=== PATIENT | male | born 1950 | race African-American/Black ===

== ENCOUNTER 2021-06-11 17:02 | Inpatient (IN) | payer BC, MEDICARE ==
[~2021-06-11 17:02] MED LIST: Iopamidol-370 76% 500 ML 1 ML ONE
[2021-06-11] MEDS ORDERED: Furosemide 40 MG/4 ML VIAL ONE (18:14)
[2021-06-11] MEDS ORDERED: Nitroglycerin 2% Ointment 1 INCH/1 GM Packet ONE (18:14)
[2021-06-11] MEDS ORDERED: Diltiazem 125 MG/25 ML ONE (18:14)
[2021-06-11 18:16] LABS: #Basophils 0.1 thou/uL (0.0-0.2); #Eosinphils 0.1 thou/uL (0.0-0.7); #Lymphocytes 1.8 thou/uL (1.20-3.40); #Monocytes 0.9 thou/uL (0.11-0.59); #Neutrophils 5.5 thou/uL (1.40-6.50); %Basophils 0.9 % (0.0-1.0); %Eosinophils 1.5 % (0.0-10.0); %Monocytes 10.5 % (0.0-10.0); %Neutrophils 65.2 % (42.0-75.0); Hemoglobin 12.4 g/dL (14.0-18.0); Mean Corpuscular HGB CONC 31.5 g/dL (32.0-36.0); Mean Corpuscular Hemoglobin 23.1 pg (27.0-31.0); Mean Corpuscular Volume 73.4 fL (78.0-98.0); Mean Platelet Volume 10.5 fL (7.4-10.4); Platelet Count 202 thou/uL (130-400); RBC Distribution Width 16.5 % (11.5-14.5); Red Blood Cell (RBC) Count 5.37 mill/uL (4.70-6.10); White Blood Cell (WBC) Count 8.4 thou/uL (4.8-10.8)
[2021-06-11 18:31] LABS: ALT (SGPT) 22 U/L (8-55); AST (SGOT) 17 U/L (5-34); Albumin 3.9 g/dL (3.4-4.8); Alkaline Phosphatase 61 U/L (40-110); Anion Gap 11 mmol/L (10-20); BUN (Urea Nitrogen) 14 mg/dL (8.4-25.7); Bilirubin, Total 0.8 mg/dL (0.2-1.2); Burr Cells SLIGHT = 2-5 cells (100X) (0-1/hpf); Calc. Creatinine Clearance 0 mL/min (70-130); Calcium 9.5 mg/dL (7.8-10.44); Carbon Dioxide 28 mmol/L (23-31); Chloride 105 mmol/L (98-107); Globulin 2.9 g/dL (2.4-3.5); Glucose 103 mg/dL (80-115); Hypochromia SLIGHT = 6-15 cells (100X) (0-5/hpf); MDiff Complete? YES; Microcytosis SLIGHT = 6-15 cells (100X) (0-5/hpf); Platelet Morphology Comment Appears Adequate; Polychromasia SLIGHT = 2-3 cells (100X) (0-2/hpf); Potassium 3.5 mmol/L (3.5-5.1); Protein, Total 6.8 g/dL (5.8-8.1); Sodium 140 mmol/L (136-145); Target Cells SLIGHT = 2-5 cells (100X) (0-1/hpf)
[2021-06-11 18:39] LABS: Digoxin 0.44 ng/mL (0.8-2.0)
[2021-06-11] MEDS ORDERED: Dextrose 5% in Water 1,000 ML IV PRN (20:28)
[2021-06-11] MEDS ORDERED: Dextrose 50% Abboject 50 ML SYRINGE SLOW IVP PRN (20:28)
[2021-06-11] MEDS ORDERED: Acetaminophen 325 MG TAB PO PRN (20:28)
[2021-06-11] MEDS ORDERED: HYDROcodone/Acetaminophen 7.5/325 mg Tablet PO PRN (20:28)
[2021-06-11] MEDS ORDERED: Ondansetron PF 4 MG/2 ML Vial IVP PRN (20:28)
[2021-06-11] MEDS ORDERED: Zolpidem Tartrate 5 MG TAB PO PRN (20:28)
[2021-06-11] MEDS ORDERED: Digoxin 0.25 MG TAB PO SCH (20:32)
[2021-06-11] MEDS ORDERED: Diltiazem 125 MG in Sodium Chloride 0.9% 100 ML IVPB SCH (20:45)
[2021-06-11] MEDS ORDERED: Furosemide 100 MG/10 ML VIAL SLOW IVP SCH (20:45)
[2021-06-11] MEDS ORDERED: Potassium Chloride 20 MEQ TAB PO SCH (20:45)
[2021-06-11] MEDS ORDERED: Diltiazem HCl CD 300 mg Capsule PO SCH (21:00)
[2021-06-11 21:06] LABS: Magnesium 1.5 mg/dL (1.6-2.6)
[2021-06-11 21:41] LABS: Troponin I 0.029 ng/mL (< 0.028)
[2021-06-11] MEDS: Apixaban 5 MG TAB PO SCH (23:05)
[2021-06-11] MEDS: Famotidine 20 MG TAB PO SCH (23:05)
[2021-06-11] MEDS: Atorvastatin Calcium 40 MG TAB PO SCH (23:06)
[2021-06-12] MEDS ORDERED: Diltiazem 125 MG in Sodium Chloride 0.9% 100 ML IVPB SCH ×2 (00:30→11:36)
[2021-06-12] MEDS ORDERED: Magnesium 2 GM/50 ML(in water) 2 GM in Premix Bag 1 BAG IVPB SCH ×2 (00:30→06:00)
[2021-06-12 00:31] VITALS: BMI 40.3
[2021-06-12 00:33] LABS: Troponin I 0.036 ng/mL (< 0.028)
[2021-06-12 04:56] LABS: #Eosinphils 0.1 thou/uL (0.0-0.7); #Lymphocytes 1.6 thou/uL (1.20-3.40); #Monocytes 0.8 thou/uL (0.11-0.59); #Neutrophils 5.2 thou/uL (1.40-6.50); %Basophils 0.3 % (0.0-1.0); %Eosinophils 1.3 % (0.0-10.0); %Lymphocytes 20.6 % (21.0-51.0); %Monocytes 10.4 % (0.0-10.0); %Neutrophils 67.5 % (42.0-75.0); Hemoglobin 12.3 g/dL (14.0-18.0); Mean Corpuscular HGB CONC 31.6 g/dL (32.0-36.0); Mean Corpuscular Hemoglobin 23.2 pg (27.0-31.0); Mean Corpuscular Volume 73.6 fL (78.0-98.0); Mean Platelet Volume 10.5 fL (7.4-10.4); Platelet Count 192 thou/uL (130-400); RBC Distribution Width 16.4 % (11.5-14.5); Red Blood Cell (RBC) Count 5.28 mill/uL (4.70-6.10); White Blood Cell (WBC) Count 7.7 thou/uL (4.8-10.8)
[2021-06-12 04:59] LABS: ALT (SGPT) 21 U/L (8-55); AST (SGOT) 17 U/L (5-34); Albumin 3.9 g/dL (3.4-4.8); Alkaline Phosphatase 60 U/L (40-110); Anion Gap 13 mmol/L (10-20); BUN (Urea Nitrogen) 14 mg/dL (8.4-25.7); Calc. Creatinine Clearance 107 mL/min (70-130); Calcium 9.1 mg/dL (7.8-10.44); Carbon Dioxide 31 mmol/L (23-31); Cardiac Risk 2.1 (Less than 4.5); Chloride 101 mmol/L (98-107); Cholesterol 91 mg/dl (< 200 Desired); Glucose 113 mg/dL (80-115); HDL Cholesterol 43 mg/dL (>60 Neg Risk); LDL Cholesterol, Calculated 38 mg/dL; Magnesium 1.7 mg/dL (1.6-2.6); Potassium 3.1 mmol/L (3.5-5.1); Protein, Total 6.9 g/dL (5.8-8.1); Sodium 142 mmol/L (136-145); Triglycerides 49 mg/dL (Less than 150)
[2021-06-12 05:01] LABS: Troponin I 0.027 ng/mL (< 0.028)
[2021-06-12] MEDS: Furosemide 40 MG/4 ML VIAL SLOW IVP SCH ×2 (05:44→14:15)
[2021-06-12] MEDS ORDERED: Diltiazem HCl CD 300 mg Capsule PO SCH (09:00)
[2021-06-12] MEDS ORDERED: Digoxin 0.25 MG TAB PO SCH (09:00)
[2021-06-12] MEDS: Apixaban 5 MG TAB PO SCH ×2 (09:38→20:22)
[2021-06-12] MEDS: Famotidine 20 MG TAB PO SCH ×2 (09:38→20:21)
[2021-06-12] MEDS: Allopurinol 100 MG TAB PO SCH (09:39)
[2021-06-12] MEDS ORDERED: Spironolactone 25 MG TAB PO SCH (15:00)
[2021-06-12 16:11] LABS: SARS-CoV-2 PCR by NAA Not Detected (NotDetected)
[2021-06-12] MEDS: Amiodarone 200 MG TAB PO SCH ×2 (16:49→20:22)
[2021-06-12] MEDS: Atorvastatin Calcium 40 MG TAB PO SCH (20:21)
[2021-06-13 05:05] LABS: #Basophils 0.1 thou/uL (0.0-0.2); #Eosinphils 0.2 thou/uL (0.0-0.7); #Lymphocytes 1.8 thou/uL (1.20-3.40); #Monocytes 0.8 thou/uL (0.11-0.59); #Neutrophils 5.7 thou/uL (1.40-6.50); %Basophils 0.7 % (0.0-1.0); %Eosinophils 2.4 % (0.0-10.0); %Lymphocytes 21.4 % (21.0-51.0); %Monocytes 9.5 % (0.0-10.0); %Neutrophils 66.1 % (42.0-75.0); Hemoglobin 12.8 g/dL (14.0-18.0); Mean Corpuscular HGB CONC 31.1 g/dL (32.0-36.0); Mean Corpuscular Hemoglobin 22.9 pg (27.0-31.0); Mean Corpuscular Volume 73.8 fL (78.0-98.0); Mean Platelet Volume 10.2 fL (7.4-10.4); Platelet Count 205 thou/uL (130-400); RBC Distribution Width 16.2 % (11.5-14.5); Red Blood Cell (RBC) Count 5.56 mill/uL (4.70-6.10); White Blood Cell (WBC) Count 8.6 thou/uL (4.8-10.8)
[2021-06-13] MEDS: Furosemide 40 MG/4 ML VIAL SLOW IVP SCH ×2 (05:20→13:11)
[2021-06-13] MEDS: Diltiazem 125 MG in Sodium Chloride 0.9% 100 ML IVPB SCH ×2 (05:20→13:10)
[2021-06-13 05:29] LABS: Anion Gap 13 mmol/L (10-20); BUN (Urea Nitrogen) 14 mg/dL (8.4-25.7); Calc. Creatinine Clearance 97 mL/min (70-130); Calcium 8.7 mg/dL (7.8-10.44); Carbon Dioxide 30 mmol/L (23-31); Chloride 101 mmol/L (98-107); Glucose 163 mg/dL (80-115); Potassium 3.1 mmol/L (3.5-5.1); Sodium 141 mmol/L (136-145)
[2021-06-13 05:37] LABS: Digoxin 0.57 ng/mL (0.8-2.0)
[2021-06-13] MEDS: Allopurinol 100 MG TAB PO SCH (08:56)
[2021-06-13] MEDS: Famotidine 20 MG TAB PO SCH ×2 (08:57→20:19)
[2021-06-13] MEDS: Spironolactone 25 MG TAB PO SCH (08:57)
[2021-06-13] MEDS: Amiodarone 200 MG TAB PO SCH ×3 (08:57→20:19)
[2021-06-13] MEDS: Apixaban 5 MG TAB PO SCH ×2 (08:57→20:19)
[2021-06-13] MEDS ORDERED: Potassium Chloride 20 MEQ TAB PO SCH (11:00)
[2021-06-13] MEDS ORDERED: Lisinopril 5 MG TAB PO SCH (12:15)
[2021-06-13] MEDS: Atorvastatin Calcium 40 MG TAB PO SCH (20:19)
[2021-06-14] MEDS: Furosemide 40 MG/4 ML VIAL SLOW IVP SCH ×2 (05:17→14:25)
[2021-06-14] MEDS ORDERED: metFORMIN 500 MG TAB PO SCH (08:00)
[2021-06-14] MEDS: Allopurinol 100 MG TAB PO SCH (08:33)
[2021-06-14] MEDS: Spironolactone 25 MG TAB PO SCH (08:33)
[2021-06-14] MEDS: Famotidine 20 MG TAB PO SCH ×2 (08:33→22:07)
[2021-06-14] MEDS: Apixaban 5 MG TAB PO SCH ×2 (08:33→22:07)
[2021-06-14] MEDS: Amiodarone 200 MG TAB PO SCH ×3 (08:34→22:07)
[2021-06-14 08:38] LABS: Anion Gap 13 mmol/L (10-20); BUN (Urea Nitrogen) 14 mg/dL (8.4-25.7); Calc. Creatinine Clearance 93 mL/min (70-130); Calcium 8.9 mg/dL (7.8-10.44); Carbon Dioxide 33 mmol/L (23-31); Chloride 101 mmol/L (98-107); Glucose 111 mg/dL (80-115); Magnesium 1.9 mg/dL (1.6-2.6); Potassium 3.5 mmol/L (3.5-5.1); Sodium 143 mmol/L (136-145)
[2021-06-14] MEDS ORDERED: Lisinopril 5 MG TAB PO SCH (09:00)
[2021-06-14] MEDS ORDERED: Milk Of Magnesia 30 ML UDCUP PO PRN (09:54)
[2021-06-14] MEDS: HumaLOG 300 UNITS/3 ML VIAL SC PRN (11:09)
[2021-06-14] MEDS ORDERED: Potassium Chloride 20 MEQ TAB PO SCH (12:00)
[2021-06-14] MEDS: Lisinopril 10 MG TAB PO SCH (22:08)
[2021-06-14] MEDS: Atorvastatin Calcium 40 MG TAB PO SCH (22:08)
[2021-06-15 05:09] LABS: #Basophils 0.1 thou/uL (0.0-0.2); #Eosinphils 0.2 thou/uL (0.0-0.7); #Lymphocytes 2.1 thou/uL (1.20-3.40); #Monocytes 0.9 thou/uL (0.11-0.59); #Neutrophils 4.9 thou/uL (1.40-6.50); %Eosinophils 2.7 % (0.0-10.0); %Lymphocytes 25.7 % (21.0-51.0); %Monocytes 10.5 % (0.0-10.0); Mean Corpuscular HGB CONC 31.4 g/dL (32.0-36.0); Mean Corpuscular Hemoglobin 23.4 pg (27.0-31.0); Mean Corpuscular Volume 74.6 fL (78.0-98.0); Mean Platelet Volume 9.6 fL (7.4-10.4); Platelet Count 228 thou/uL (130-400); RBC Distribution Width 16.3 % (11.5-14.5); Red Blood Cell (RBC) Count 5.98 mill/uL (4.70-6.10); White Blood Cell (WBC) Count 8.1 thou/uL (4.8-10.8)
[2021-06-15] MEDS: Furosemide 40 MG/4 ML VIAL SLOW IVP SCH (05:25)
[2021-06-15 05:35] LABS: Anion Gap 12 mmol/L (10-20); BUN (Urea Nitrogen) 17 mg/dL (8.4-25.7); Calc. Creatinine Clearance 93 mL/min (70-130); Calcium 8.8 mg/dL (7.8-10.44); Carbon Dioxide 30 mmol/L (23-31); Chloride 103 mmol/L (98-107); Glucose 100 mg/dL (80-115); Potassium 3.4 mmol/L (3.5-5.1); Sodium 142 mmol/L (136-145)
[2021-06-15] MEDS: Spironolactone 25 MG TAB PO SCH (08:46)
[2021-06-15] MEDS: Amiodarone 200 MG TAB PO SCH ×3 (08:46→21:48)
[2021-06-15] MEDS: Famotidine 20 MG TAB PO SCH ×2 (08:47→21:50)
[2021-06-15] MEDS: Apixaban 5 MG TAB PO SCH ×2 (08:47→21:49)
[2021-06-15] MEDS: Lisinopril 10 MG TAB PO SCH ×2 (08:47→21:50)
[2021-06-15] MEDS: Allopurinol 100 MG TAB PO SCH (08:47)
[2021-06-15] MEDS ORDERED: Lidocaine 1% PF 5 ML VIAL ONE ×2 (10:52→11:17)
[2021-06-15] MEDS ORDERED: PROPOFOL 20 ML ONE (10:52)
[2021-06-15] MEDS ORDERED: PROPOFOL 200 MG/20 ML VIAL ONE (11:17)
[2021-06-15] MEDS ORDERED: Potassium Chloride 20 MEQ TAB PO SCH (11:30)
[2021-06-15] MEDS ORDERED: Metoprolol Tartrate 5 MG/5 ML VIAL ONE (12:58)
[2021-06-15] MEDS: Atorvastatin Calcium 40 MG TAB PO SCH (21:49)
[2021-06-16 04:45] LABS: #Basophils 0.1 thou/uL (0.0-0.2); #Eosinphils 0.2 thou/uL (0.0-0.7); #Lymphocytes 2.6 thou/uL (1.20-3.40); #Neutrophils 6.2 thou/uL (1.40-6.50); %Basophils 0.8 % (0.0-1.0); %Eosinophils 1.9 % (0.0-10.0); %Lymphocytes 26.1 % (21.0-51.0); %Monocytes 9.8 % (0.0-10.0); %Neutrophils 61.4 % (42.0-75.0); Hemoglobin 13.7 g/dL (14.0-18.0); Mean Corpuscular HGB CONC 31.2 g/dL (32.0-36.0); Mean Corpuscular Hemoglobin 23.1 pg (27.0-31.0); Mean Corpuscular Volume 74.1 fL (78.0-98.0); Mean Platelet Volume 9.8 fL (7.4-10.4); Platelet Count 254 thou/uL (130-400); RBC Distribution Width 16.2 % (11.5-14.5); Red Blood Cell (RBC) Count 5.91 mill/uL (4.70-6.10); White Blood Cell (WBC) Count 10.1 thou/uL (4.8-10.8)
[2021-06-16 04:54] LABS: Anion Gap 12 mmol/L (10-20); BUN (Urea Nitrogen) 20 mg/dL (8.4-25.7); Calc. Creatinine Clearance 85 mL/min (70-130); Calcium 8.8 mg/dL (7.8-10.44); Carbon Dioxide 30 mmol/L (23-31); Chloride 103 mmol/L (98-107); Glucose 111 mg/dL (80-115); Potassium 3.6 mmol/L (3.5-5.1); Sodium 141 mmol/L (136-145)
[2021-06-16] MEDS ORDERED: Metoprolol Tartrate 5 MG/5 ML VIAL IVP SCH (09:02)
[2021-06-16] MEDS ORDERED: Potassium Chloride 20 MEQ TAB PO SCH (09:15)
[2021-06-16] MEDS ORDERED: Enoxaparin Sodium 100 MG/ML SYRINGE SC SCH (09:30)
[2021-06-16] MEDS: Amiodarone 200 MG TAB PO SCH ×3 (09:31→20:49)
[2021-06-16] MEDS: Metoprolol Tartrate 25 MG TAB PO SCH ×2 (09:31→20:50)
[2021-06-16] MEDS: Famotidine 20 MG TAB PO SCH ×2 (09:32→20:50)
[2021-06-16] MEDS: Allopurinol 100 MG TAB PO SCH (09:33)
[2021-06-16] MEDS: Spironolactone 25 MG TAB PO SCH (09:33)
[2021-06-16] MEDS: Lisinopril 10 MG TAB PO SCH ×2 (09:36→20:50)
[2021-06-16] MEDS: Apixaban 5 MG TAB PO SCH (10:48)
[2021-06-16] MEDS: Atorvastatin Calcium 40 MG TAB PO SCH (20:50)
[2021-06-16] MEDS: Enoxaparin Sodium 100 MG/ML SYRINGE SC SCH (20:50)
[2021-06-17 04:39] LABS: #Basophils 0.1 thou/uL (0.0-0.2); #Eosinphils 0.1 thou/uL (0.0-0.7); #Lymphocytes 2.6 thou/uL (1.20-3.40); #Monocytes 0.9 thou/uL (0.11-0.59); %Basophils 0.9 % (0.0-1.0); %Eosinophils 1.5 % (0.0-10.0); %Lymphocytes 29.9 % (21.0-51.0); %Monocytes 10.7 % (0.0-10.0); Hemoglobin 13.2 g/dL (14.0-18.0); Mean Corpuscular HGB CONC 31.3 g/dL (32.0-36.0); Mean Corpuscular Hemoglobin 23.2 pg (27.0-31.0); Mean Corpuscular Volume 74.1 fL (78.0-98.0); Mean Platelet Volume 9.8 fL (7.4-10.4); Platelet Count 241 thou/uL (130-400); RBC Distribution Width 16.2 % (11.5-14.5); Red Blood Cell (RBC) Count 5.69 mill/uL (4.70-6.10); White Blood Cell (WBC) Count 8.7 thou/uL (4.8-10.8)
[2021-06-17 04:45] LABS: INR-International Normal Ratio 1.3
[2021-06-17 04:58] LABS: Anion Gap 13 mmol/L (10-20); BUN (Urea Nitrogen) 22 mg/dL (8.4-25.7); Calc. Creatinine Clearance 87 mL/min (70-130); Calcium 8.7 mg/dL (7.8-10.44); Carbon Dioxide 26 mmol/L (23-31); Chloride 106 mmol/L (98-107); Glucose 107 mg/dL (80-115); Magnesium 1.9 mg/dL (1.6-2.6); Sodium 141 mmol/L (136-145)
[2021-06-17] MEDS: Amiodarone 200 MG TAB PO SCH ×2 (09:22→20:25)
[2021-06-17] MEDS: Allopurinol 100 MG TAB PO SCH (09:22)
[2021-06-17] MEDS: Lisinopril 10 MG TAB PO SCH ×2 (09:22→20:25)
[2021-06-17] MEDS: Famotidine 20 MG TAB PO SCH ×2 (09:22→20:25)
[2021-06-17] MEDS ORDERED: Metoprolol Tartrate 5 MG/5 ML VIAL IVP SCH (09:22)
[2021-06-17] MEDS: Enoxaparin Sodium 100 MG/ML SYRINGE SC SCH ×2 (09:23→20:25)
[2021-06-17] MEDS: Spironolactone 25 MG TAB PO SCH (09:23)
[2021-06-17] MEDS: Metoprolol Tartrate 25 MG TAB PO SCH (09:23)
[2021-06-17] MEDS: HumaLOG 300 UNITS/3 ML VIAL SC PRN (13:05)
[2021-06-17] MEDS: Metoprolol Tartrate 50 MG TAB PO SCH (20:25)
[2021-06-17] MEDS: Atorvastatin Calcium 40 MG TAB PO SCH (20:25)
[2021-06-18 04:31] LABS: #Basophils 0.1 thou/uL (0.0-0.2); #Eosinphils 0.1 thou/uL (0.0-0.7); #Lymphocytes 2.7 thou/uL (1.20-3.40); #Monocytes 0.9 thou/uL (0.11-0.59); #Neutrophils 4.5 thou/uL (1.40-6.50); %Basophils 0.9 % (0.0-1.0); %Eosinophils 1.3 % (0.0-10.0); %Lymphocytes 33.1 % (21.0-51.0); %Monocytes 10.8 % (0.0-10.0); %Neutrophils 53.9 % (42.0-75.0); Hemoglobin 13.6 g/dL (14.0-18.0); Mean Corpuscular HGB CONC 31.2 g/dL (32.0-36.0); Mean Corpuscular Hemoglobin 23.1 pg (27.0-31.0); Mean Platelet Volume 9.6 fL (7.4-10.4); Platelet Count 237 thou/uL (130-400); Red Blood Cell (RBC) Count 5.89 mill/uL (4.70-6.10); White Blood Cell (WBC) Count 8.3 thou/uL (4.8-10.8)
[2021-06-18 04:48] LABS: Anion Gap 13 mmol/L (10-20); BUN (Urea Nitrogen) 24 mg/dL (8.4-25.7); Calc. Creatinine Clearance 73 mL/min (70-130); Calcium 9.1 mg/dL (7.8-10.44); Carbon Dioxide 28 mmol/L (23-31); Chloride 105 mmol/L (98-107); Glucose 111 mg/dL (80-115); Potassium 3.8 mmol/L (3.5-5.1); Sodium 142 mmol/L (136-145)
[2021-06-18] MEDS: Metoprolol Tartrate 50 MG TAB PO SCH (05:43)
[2021-06-18] MEDS ORDERED: Isoproterenol 0.2 MG/1 ML AMP ONE (06:19)
[2021-06-18] MEDS ORDERED: Heparin 10,000 UNITS/ 10 ML VIAL ONE (06:19)
[2021-06-18] MEDS ORDERED: Protamine Sulfate 50 MG/5 ML VIAL ONE (06:19)
[2021-06-18] MEDS ORDERED: Lidocaine 1% (PF) 30 ML VIAL ONE (06:19)
[2021-06-18] MEDS ORDERED: Heparin 25,000 units/D5W 0 ML ONE (06:19)
[2021-06-18] MEDS ORDERED: Propofol 500 MG/50 ML VIAL ONE (07:04)
[2021-06-18] MEDS ORDERED: fentaNYL Citrate/PF 100 MCG/2 ML SYRINGE ONE (07:24)
[2021-06-18] MEDS ORDERED: Albuterol Sulfate HFA (OR ONLY) ONE (07:53)
[2021-06-18] MEDS: Spironolactone 25 MG TAB PO SCH (13:15)
[2021-06-18] MEDS: Allopurinol 100 MG TAB PO SCH (13:15)
[2021-06-18] MEDS: Lisinopril 10 MG TAB PO SCH (13:15)
[2021-06-18] MEDS: Famotidine 20 MG TAB PO SCH (13:15)
[2021-06-18] MEDS: Amiodarone 200 MG TAB PO SCH (13:16)
[2021-06-18] MEDS: Enoxaparin Sodium 100 MG/ML SYRINGE SC SCH (13:18)
[2021-06-18 15:07] VITALS: BP 127/68; TEMP 97.1
[2021-06-18] MEDS ORDERED: Amiodarone 200 MG TAB PO SCH (21:00)
[2021-06-18] MEDS ORDERED: Metoprolol Tartrate 25 MG TAB PO SCH (21:00)
[2021-06-18] MEDS ORDERED: Apixaban 5 MG TAB PO SCH (21:00)
== END 2021-06-18 16:45 | disposition home or self-care (01) | DRG 273 ==
LOC: ERS 17:02 → 2NO 19:35
PROVIDERS: ADMIT Family Medicine; ATTEND Family Medicine
PROC: B24BZZ4 Ultrasonography of Heart with Aorta, Transesophageal (ICD-10-PCS; 2021-06-15)
PROC: 02583ZZ Destruction of Conduction Mechanism, Percutaneous Approach (ICD-10-PCS; principal; 2021-06-18)
PROC: 02K83ZZ Map Conduction Mechanism, Percutaneous Approach (ICD-10-PCS; 2021-06-18)
PROC: 4A023FZ Measurement of Cardiac Rhythm, Percutaneous Approach (ICD-10-PCS; 2021-06-18)
PROC: 4A0234Z Measurement of Cardiac Electrical Activity, Percutaneous Approach (ICD-10-PCS; 2021-06-18)
DX: I48.3 Typical atrial flutter (principal); I50.43 Acute on chronic combined systolic (congestive) and diastolic (congestive) heart failure; I11.0 Hypertensive heart disease with heart failure; I48.19 Other persistent atrial fibrillation; Z20.822 Contact with and (suspected) exposure to COVID-19; E11.9 Type 2 diabetes mellitus without complications; E66.9 Obesity, unspecified; D17.0 Benign lipomatous neoplasm of skin and subcutaneous tissue of head, face and neck; E87.6 Hypokalemia; F17.210 Nicotine dependence, cigarettes, uncomplicated; I25.10 Atherosclerotic heart disease of native coronary artery without angina pectoris; I08.3 Combined rheumatic disorders of mitral, aortic and tricuspid valves; K59.00 Constipation, unspecified; Z79.01 Long term (current) use of anticoagulants; Z79.899 Other long term (current) drug therapy; Z68.38 Body mass index [BMI] 38.0-38.9, adult; Z88.0 Allergy status to penicillin
CPT/HCPCS: 36415; 36416; 71045; 71275; 80048; 80053; 80061; 80162; 83735; 83880; 84443; 84484; 85025; 85379; 85610; 92960; 93005; 93010; 93306; 93312; 93613; 93653; 96374; 96375; C1731; C1894; C2630; J1644; J1650; J1940; J2001; J2704; J2720; J3475; J3490; Q9967; U0003; U0005

== ENCOUNTER 2021-09-17 10:50 | Inpatient (IN) | payer MEDICARE ==
[2021-09-17 11:45] LABS: #Lymphocytes 0.9 thou/uL (1.20-3.40); #Monocytes 1.5 thou/uL (0.11-0.59); #Neutrophils 15.7 thou/uL (1.40-6.50); %Basophils 0.1 % (0.0-1.0); %Eosinophils 0.1 % (0.0-10.0); %Lymphocytes 5.2 % (21.0-51.0); %Neutrophils 86.6 % (42.0-75.0); Mean Corpuscular HGB CONC 32.2 g/dL (32.0-36.0); Mean Corpuscular Hemoglobin 22.7 pg (27.0-31.0); Mean Corpuscular Volume 70.5 fL (78.0-98.0); Mean Platelet Volume 10.7 fL (7.4-10.4); Platelet Count 198 thou/uL (130-400); RBC Distribution Width 17.2 % (11.5-14.5); Red Blood Cell (RBC) Count 5.28 mill/uL (4.70-6.10); White Blood Cell (WBC) Count 18.2 thou/uL (4.8-10.8)
[2021-09-17 11:58] LABS: ALT (SGPT) 12 U/L (8-55); AST (SGOT) 14 U/L (5-34); Albumin 3.5 g/dL (3.4-4.8); Alkaline Phosphatase 60 U/L (40-110); Anion Gap 16 mmol/L (10-20); BUN (Urea Nitrogen) 19 mg/dL (8.4-25.7); Bilirubin, Total 1.1 mg/dL (0.2-1.2); CK (CPK) 127 U/L (30-200); Calc. Creatinine Clearance 0 mL/min (70-130); Calcium 9.1 mg/dL (7.8-10.44); Carbon Dioxide 22 mmol/L (23-31); Chloride 105 mmol/L (98-107); Estimated GFR 39; Globulin 3.5 g/dL (2.4-3.5); Glucose 146 mg/dL (80-115); Lipase 13 U/L (8-78); Potassium 3.3 mmol/L (3.5-5.1); Sodium 140 mmol/L (136-145)
[2021-09-17 12:12] LABS: Band 12 % (5-11); Hypochromia SLIGHT = 6-15 cells (100X) (0-5/hpf); Lymphocytes 9 % (21-51); MDiff Complete? YES; Microcytosis SLIGHT = 6-15 cells (100X) (0-5/hpf); Monocytes 3 % (0-10); Neutrophil 76 % (42-75); Polychromasia SLIGHT = 2-3 cells (100X) (0-2/hpf); Target Cells SLIGHT = 2-5 cells (100X) (0-1/hpf)
[2021-09-17 12:25] LABS: CKMB 1.3 ng/mL (0-6.6)
[2021-09-17 12:40] LABS: Digoxin Less than 0.15 ng/mL (0.8-2.0)
[2021-09-17] MEDS ORDERED: Aspirin Chewable 81 MG TAB ONE (12:58)
[2021-09-17] MEDS ORDERED: Cefepime 2 GM VIAL ONE (12:58)
[2021-09-17] MEDS ORDERED: Vancomycin 1 GM/200 ML BAG ONE (13:46)
[2021-09-17] MEDS ORDERED: Dextrose 5% in Water 1,000 ML IV PRN (14:12)
[2021-09-17] MEDS ORDERED: HumaLOG 300 UNITS/3 ML VIAL SC PRN ×2 (14:12)
[2021-09-17] MEDS ORDERED: Dextrose 50% Abboject 50 ML SYRINGE SLOW IVP PRN (14:12)
[2021-09-17] MEDS ORDERED: Ondansetron ODT 4 MG TAB PO PRN (14:13)
[2021-09-17] MEDS ORDERED: Ondansetron PF 4 MG/2 ML Vial IVP PRN (14:13)
[2021-09-17] MEDS ORDERED: Acetaminophen 325 MG TAB PO PRN (14:13)
[2021-09-17] MEDS ORDERED: Senokot S 8.6-50 MG TAB PO PRN (14:13)
[2021-09-17] MEDS ORDERED: Sodium Chloride 0.9% 1,000 ML IV SCH ×3 (14:15→16:00)
[2021-09-17 14:17] LABS: Bacteria/HPF 4+ HPF (None Seen); Bilirubin Negative (Negative); Blood, Urine 3+ (Negative); Clarity Turbid (Clear); Glucose, Urine (Dipstick) Normal (Negative); Ketone, Urine Negative (Negative); Leukocyte 500 Leu/uL (Negative); Nitrite Negative (Negative); Protein, Urine (Dipstick) 30 mg/dL (Neg-Trace); RBC/HPF 21-50 HPF (0-3); Specific Gravity, Urine 1.021 (1.002-1.036); Squamous Epithelial None Seen HPF (0-3); Urobilinogen Normal mg/dL (Less than 2); WBC/HPF Greater than 50 HPF (0-3); pH, Urine 5.5 (5.0-9.0)
[2021-09-17] MEDS ORDERED: Potassium Chloride 20 MEQ TAB PO SCH (14:17)
[2021-09-17 14:37] LABS: SARS-CoV-2 NAA Rapid Test Not Detected (NotDetected)
[2021-09-17 15:09] LABS: Troponin I 0.047 ng/mL (< 0.028)
[2021-09-17 15:34] LABS: Lactic Acid 2.7 mmol/L (0.5-2.2)
[2021-09-17] MEDS ORDERED: Potassium Chloride 20 MEQ TAB ONE (15:39)
[2021-09-17 15:57] LABS: Magnesium 1.1 mg/dL (1.6-2.6)
[2021-09-17 18:28] VITALS: BMI 36.2
[2021-09-17] MEDS ORDERED: Magnesium 2 GM/50 ML(in water) 2 GM in Premix Bag 1 BAG IVPB SCH (19:45)
[2021-09-17 19:50] LABS: Lactic Acid 2.5 mmol/L (0.5-2.2)
[2021-09-17 19:58] LABS: Troponin I 0.048 ng/mL (< 0.028)
[2021-09-17] MEDS: Apixaban 5 MG TAB PO SCH (20:39)
[2021-09-17] MEDS: Famotidine 20 MG TAB PO SCH (20:39)
[2021-09-17] MEDS ORDERED: Enoxaparin Sodium 40 MG/0.4 ML SYRINGE SC SCH (21:00)
[2021-09-18] MEDS ORDERED: hydrALAZINE 20 MG/ML VIAL SLOW IVP PRN ×2 (03:19→11:41)
[2021-09-18 04:28] LABS: #Basophils 0.1 thou/uL (0.0-0.2); #Lymphocytes 1.8 thou/uL (1.20-3.40); #Monocytes 1.8 thou/uL (0.11-0.59); #Neutrophils 15.3 thou/uL (1.40-6.50); %Basophils 0.3 % (0.0-1.0); %Eosinophils 0.2 % (0.0-10.0); %Lymphocytes 9.7 % (21.0-51.0); %Monocytes 9.5 % (0.0-10.0); %Neutrophils 80.3 % (42.0-75.0); Hemoglobin 10.9 g/dL (14.0-18.0); Mean Corpuscular HGB CONC 31.8 g/dL (32.0-36.0); Mean Corpuscular Hemoglobin 22.8 pg (27.0-31.0); Mean Corpuscular Volume 71.6 fL (78.0-98.0); Mean Platelet Volume 11.5 fL (7.4-10.4); Platelet Count 193 thou/uL (130-400); RBC Distribution Width 17.4 % (11.5-14.5); White Blood Cell (WBC) Count 19.1 thou/uL (4.8-10.8)
[2021-09-18 05:01] LABS: Anion Gap 14 mmol/L (10-20); BUN (Urea Nitrogen) 18 mg/dL (8.4-25.7); Calc. Creatinine Clearance 75 mL/min (70-130); Calcium 8.6 mg/dL (7.8-10.44); Carbon Dioxide 22 mmol/L (23-31); Chloride 106 mmol/L (98-107); Estimated GFR 56; Glucose 105 mg/dL (80-115); Magnesium 1.6 mg/dL (1.6-2.6); Potassium 3.3 mmol/L (3.5-5.1); Sodium 139 mmol/L (136-145)
[2021-09-18] MEDS ORDERED: Potassium Chloride 20 MEQ TAB PO SCH (08:00)
[2021-09-18] MEDS ORDERED: Non-Formulary Item 1 EACH (Spironolactone [Spironolactone] 50 MG Tablet) PO SCH (09:00)
[2021-09-18] MEDS ORDERED: Lisinopril 10 MG TAB PO SCH (09:00)
[2021-09-18] MEDS: Atorvastatin Calcium 40 MG TAB PO SCH (09:06)
[2021-09-18] MEDS: Apixaban 5 MG TAB PO SCH ×2 (09:06→20:37)
[2021-09-18] MEDS: Famotidine 20 MG TAB PO SCH ×2 (09:06→20:37)
[2021-09-18] MEDS: Amiodarone 200 MG TAB PO SCH ×2 (09:06→20:37)
[2021-09-18] MEDS: Spironolactone 25 MG TAB PO SCH (09:06)
[2021-09-18] MEDS: Magnesium Oxide 400 MG TAB PO SCH ×2 (09:07→20:37)
[2021-09-18] MEDS: cefTRIAXone\\ROCEPHIN 1 GM in Sodium Chloride 0.9% 100 ML IVPB SCH (11:44)
[2021-09-18] MEDS ORDERED: hydrALAZINE 20 MG/ML VIAL ONE (12:05)
[2021-09-18] MEDS ORDERED: Metoprolol Tartrate 25 MG TAB PO SCH (21:00)
[2021-09-18] MEDS ORDERED: Lisinopril 20 MG TAB PO SCH (21:00)
[2021-09-19 04:41] LABS: Mean Corpuscular HGB CONC 33.4 g/dL (32.0-36.0); Mean Corpuscular Hemoglobin 24.1 pg (27.0-31.0); Mean Corpuscular Volume 72.4 fL (78.0-98.0); Mean Platelet Volume 10.2 fL (7.4-10.4); Platelet Count 210 thou/uL (130-400); RBC Distribution Width 17.7 % (11.5-14.5); Red Blood Cell (RBC) Count 4.57 mill/uL (4.70-6.10); White Blood Cell (WBC) Count 13.5 thou/uL (4.8-10.8)
[2021-09-19 05:12] LABS: Anion Gap 11 mmol/L (10-20); BUN (Urea Nitrogen) 16 mg/dL (8.4-25.7); Calc. Creatinine Clearance 92 mL/min (70-130); Calcium 8.5 mg/dL (7.8-10.44); Carbon Dioxide 23 mmol/L (23-31); Chloride 106 mmol/L (98-107); Estimated GFR 71; Glucose 102 mg/dL (80-115); Potassium 3.5 mmol/L (3.5-5.1); Sodium 136 mmol/L (136-145)
[2021-09-19] MEDS ORDERED: Lisinopril 10 MG TAB PO SCH (09:00)
[2021-09-19] MEDS ORDERED: Triamterene/Hydrochlorothiazid 75 mg/50 mg Tablet PO SCH (09:00)
[2021-09-19] MEDS: Spironolactone 25 MG TAB PO SCH (09:05)
[2021-09-19] MEDS: Apixaban 5 MG TAB PO SCH (09:06)
[2021-09-19] MEDS: Atorvastatin Calcium 40 MG TAB PO SCH (09:06)
[2021-09-19] MEDS: Amiodarone 200 MG TAB PO SCH (09:06)
[2021-09-19] MEDS: Famotidine 20 MG TAB PO SCH (09:06)
[2021-09-19] MEDS: cefTRIAXone\\ROCEPHIN 1 GM in Sodium Chloride 0.9% 100 ML IVPB SCH (11:34)
[2021-09-19 11:57] VITALS: TEMP 96.5
[2021-09-19 17:44] VITALS: BP 148/71
== END 2021-09-19 18:33 | disposition home health service (06) | DRG 871 ==
LOC: ERS 10:50 → ERHOLD 14:12 → 2NO 17:53
PROVIDERS: ADMIT Family Medicine; ATTEND Internal Medicine
DX: A41.52 Sepsis due to Pseudomonas (principal); I21.A1 Myocardial infarction type 2; I50.22 Chronic systolic (congestive) heart failure; E87.2 Acidosis; N39.0 Urinary tract infection, site not specified; N17.9 Acute kidney failure, unspecified; I13.0 Hypertensive heart and chronic kidney disease with heart failure and stage 1 through stage 4 chronic kidney disease, or unspecified chronic kidney disease; A41.59 Other Gram-negative sepsis; Z20.822 Contact with and (suspected) exposure to COVID-19; M10.9 Gout, unspecified; N18.30 Chronic kidney disease, stage 3 unspecified; I48.0 Paroxysmal atrial fibrillation; E11.22 Type 2 diabetes mellitus with diabetic chronic kidney disease; E87.6 Hypokalemia; E83.42 Hypomagnesemia; Z88.0 Allergy status to penicillin; Z79.899 Other long term (current) drug therapy; Z79.84 Long term (current) use of oral hypoglycemic drugs; Z79.01 Long term (current) use of anticoagulants; Z79.02 Long term (current) use of antithrombotics/antiplatelets
CPT/HCPCS: 36415; 36416; 70450; 71045; 80048; 80053; 80162; 81003; 81015; 82550; 82553; 83605; 83690; 83735; 83880; 84484; 85025; 85027; 87040; 87077; 87086; 87186; 93005; 94760; 96365; 96367; J0360; J0692; J0696; J3370; J3475; J3490; J7050; U0002

== ENCOUNTER 2021-10-08 11:05 | Outpatient (CLI) | payer MEDICARE ==
[2021-10-08 12:51] LABS: #Basophils 0.1 10x3/uL (0.0-0.2); #Eosinphils 0.2 10x3/uL (0.0-0.5); #Monocytes 0.7 10x3/uL (0.0-1.1); #Neutrophils 5.4 10x3/uL (1.5-8.4); %Basophils 0.7 % (0.0-2.0); %Eosinophils 1.9 % (0.0-6.0); %Monocytes 8.6 % (0.0-10.0); %Neutrophils 62.5 % (40.0-75.0); Hemoglobin 10.8 g/dL (13.5-17.5); Mean Corpuscular Hemoglobin 21.6 pg (27.0-33.0); Mean Corpuscular Volume 67.5 fl (81.2-95.1); Mean Platelet Volume 10.9 fl (7.4-10.4); Platelet Count 309 10x3/uL (150-450); RBC Distribution Width 20.8 % (11.5-14.5); Red Blood Cell (RBC) Count 4.99 10x6/uL (4.32-5.72); White Blood Cell (WBC) Count 8.6 10x3/uL (3.5-10.5)
[2021-10-08 13:18] LABS: ALT (SGPT) 19 U/L (8-55); AST (SGOT) 17 U/L (5-34); Albumin 4.1 g/dL (3.4-4.8); Alkaline Phosphatase 74 U/L (40-110); Anion Gap 17 mmol/L (10-20); BUN (Urea Nitrogen) 31 mg/dL (8.4-25.7); Bilirubin, Total 0.7 mg/dL (0.2-1.2); Calc. Creatinine Clearance 0 mL/min (70-130); Calcium 9.5 mg/dL (7.8-10.44); Carbon Dioxide 22 mmol/L (23-31); Chloride 106 mmol/L (98-107); Estimated GFR 43; Globulin 3.3 g/dL (2.4-3.5); Glucose 94 mg/dL (80-115); Potassium 4.1 mmol/L (3.5-5.1); Protein, Total 7.4 g/dL (5.8-8.1); Sodium 141 mmol/L (136-145)
[2021-10-08 13:29] LABS: Anisocytosis SLIGHT = 6-15 cells (100X) (0-5/hpf); Hypochromia SLIGHT = 6-15 cells (100X) (0-5/hpf); Microcytosis SLIGHT = 6-15 cells (100X) (0-5/hpf); Target Cells SLIGHT = 2-5 cells (100X) (0-1/hpf)
== END 2021-10-08 11:06 | disposition home or self-care (01) ==
LOC: LABBT 11:05
PROVIDERS: ATTEND Internal Medicine Cardiovascular Disease
DX: Z01.812 Encounter for preprocedural laboratory examination (principal); R94.39 Abnormal result of other cardiovascular function study; Z20.822 Contact with and (suspected) exposure to COVID-19
CPT/HCPCS: 80053; 85025; 87811

== ENCOUNTER 2021-10-13 07:21 | Emergency (ER) | payer MEDICARE ==
[2021-10-13] MEDS ORDERED: predniSONE 20 MG TAB ONE (08:15)
[2021-10-13 08:33] LABS: Bilirubin Negative (Negative); Blood, Urine 2+ (Negative); Clarity Turbid (Clear); Glucose, Urine (Dipstick) Normal (Negative); Ketone, Urine Negative (Negative); Leukocyte 500 Leu/uL (Negative); Nitrite Negative (Negative); Protein, Urine (Dipstick) 10 mg/dL (Neg-Trace); Specific Gravity, Urine 1.014 (1.002-1.036); Squamous Epithelial 0-3 HPF (0-3); Urobilinogen Normal mg/dL (Less than 2); WBC/HPF Greater than 50 HPF (0-3); pH, Urine 5.5 (5.0-9.0)
[2021-10-13 08:45] LABS: Bacteria/HPF 2+ HPF (None Seen)
== END 2021-10-13 09:15 | disposition home or self-care (01) ==
LOC: ERS 07:21
DX: N39.0 Urinary tract infection, site not specified (principal); B37.2 Candidiasis of skin and nail; L25.9 Unspecified contact dermatitis, unspecified cause; H01.9 Unspecified inflammation of eyelid; I10 Essential (primary) hypertension; Z79.899 Other long term (current) drug therapy
CPT/HCPCS: 81003; 81015; 87077; 87086; 87186; 99283; J7512

== ENCOUNTER 2021-10-15 10:19 | Outpatient (CLI) | payer MEDICARE ==
[2021-10-15 10:58] LABS: #Monocytes 0.7 10x3/uL (0.0-1.1); #Neutrophils 13.3 10x3/uL (1.5-8.4); %Basophils 0.1 % (0.0-2.0); %Lymphocytes 9.8 % (18.0-47.0); %Monocytes 4.6 % (0.0-10.0); Hemoglobin 10.6 g/dL (13.5-17.5); Mean Corpuscular HGB CONC 31.9 g/dL (32.0-36.0); Mean Corpuscular Hemoglobin 21.6 pg (27.0-33.0); Mean Corpuscular Volume 67.6 fl (81.2-95.1); Mean Platelet Volume 10.4 fl (7.4-10.4); Platelet Count 318 10x3/uL (150-450); RBC Distribution Width 20.8 % (11.5-14.5); Red Blood Cell (RBC) Count 4.91 10x6/uL (4.32-5.72); White Blood Cell (WBC) Count 15.7 10x3/uL (3.5-10.5)
[2021-10-15 11:38] LABS: ALT (SGPT) 20 U/L (8-55); AST (SGOT) 16 U/L (5-34); Alkaline Phosphatase 67 U/L (40-110); Anion Gap 14 mmol/L (10-20); BUN (Urea Nitrogen) 49 mg/dL (8.4-25.7); Bilirubin, Total 0.5 mg/dL (0.2-1.2); Calc. Creatinine Clearance 0 mL/min (70-130); Calcium 9.2 mg/dL (7.8-10.44); Carbon Dioxide 22 mmol/L (23-31); Chloride 105 mmol/L (98-107); Estimated GFR 35; Globulin 3.3 g/dL (2.4-3.5); Glucose 138 mg/dL (80-115); Potassium 4.1 mmol/L (3.5-5.1); Protein, Total 7.3 g/dL (5.8-8.1); Sodium 137 mmol/L (136-145)
== END 2021-10-15 10:20 | disposition home or self-care (01) ==
LOC: LABBT 10:19
PROVIDERS: ATTEND Internal Medicine Cardiovascular Disease
DX: Z01.812 Encounter for preprocedural laboratory examination (principal); Z20.822 Contact with and (suspected) exposure to COVID-19
CPT/HCPCS: 80053; 85025; 87811

== ENCOUNTER 2021-11-04 09:00 | Inpatient (IN) | payer MEDICARE ==
[2021-11-04 10:09] LABS: Mean Corpuscular HGB CONC 32.1 g/dL (32.0-36.0); Mean Corpuscular Hemoglobin 22.5 pg (27.0-33.0); Mean Corpuscular Volume 70.1 fl (81.2-95.1); Mean Platelet Volume 10.8 fl (7.4-10.4); Platelet Count 197 10x3/uL (150-450); RBC Distribution Width 21.5 % (11.5-14.5); Red Blood Cell (RBC) Count 4.45 10x6/uL (4.32-5.72); White Blood Cell (WBC) Count 10.6 10x3/uL (3.5-10.5)
[2021-11-04 10:10] LABS: Anion Gap 11 mmol/L (10-20); BUN (Urea Nitrogen) 24 mg/dL (8.4-25.7); Calc. Creatinine Clearance 0 mL/min (70-130); Calcium 8.8 mg/dL (7.8-10.44); Carbon Dioxide 27 mmol/L (23-31); Chloride 108 mmol/L (98-107); Estimated GFR 56; Glucose 89 mg/dL (80-115); Potassium 3.7 mmol/L (3.5-5.1); Sodium 142 mmol/L (136-145)
[2021-11-08] MEDS ORDERED: Albumin 5% 0 ML ONE (06:39)
[2021-11-08] MEDS ORDERED: PHENYLEPHRINE-NS 100 MCG/ML 10 ML SYRINGE ONE (06:39)
[2021-11-08] MEDS ORDERED: Lidocaine 1% MPF 2 ML VIAL ONE (06:59)
[2021-11-08] MEDS ORDERED: Midazolam HCl 5 mg/5 ml Vial ONE (07:16)
[2021-11-08] MEDS ORDERED: fentaNYL Citrate/PF 100 MCG/2 ML SYRINGE ONE (07:16)
[2021-11-08] MEDS ORDERED: Mannitol 12.5 GM/50 ML ONE (07:23)
[2021-11-08] MEDS ORDERED: Thrombin 5000 UNITS/5 ML VIAL ONE (07:23)
[2021-11-08] MEDS ORDERED: Magnesium Sulfate 1 GM/2 ML VIAL ONE (07:23)
[2021-11-08] MEDS ORDERED: Lidocaine 2% PF 100 mg/5 ml Syringe ONE (07:23)
[2021-11-08] MEDS ORDERED: Heparin 5,000 UNITS/ML VIAL ONE (07:23)
[2021-11-08] MEDS ORDERED: Heparin 30,000 units/30 ml VIAL ONE (07:23)
[2021-11-08] MEDS ORDERED: Calcium Chloride 1 GM/10 ML Abboject SYRINGE ONE (07:23)
[2021-11-08] MEDS ORDERED: Sodium Bicarb 50 MEQ/50 ML Abboject 8.4% SYRINGE ONE (07:23)
[2021-11-08] MEDS ORDERED: Succinylcholine 200 MG/10 ml SYRINGE FS ONE (07:23)
[2021-11-08] MEDS ORDERED: Cardioplegic Soln 1,000 ML BAG ONE (07:23)
[2021-11-08] MEDS ORDERED: Rocuronium Bromide 10 MG/ML (10ML VIAL) ONE (07:23)
[2021-11-08] MEDS ORDERED: Protamine Sulfate 250 MG/25 ML VIAL ONE (07:23)
[2021-11-08] MEDS ORDERED: Aminocaproic Acid 5 GM/20 ML VIAL ONE (07:23)
[2021-11-08] MEDS ORDERED: Papaverine 60 MG/2 ML VIAL ONE (07:23)
[2021-11-08] MEDS ORDERED: Vecuronium 10 MG VIAL ONE (07:23)
[2021-11-08] MEDS ORDERED: PROPOFOL 200 MG/20 ML VIAL ONE (07:23)
[2021-11-08] MEDS ORDERED: Levofloxacin 500 mg/D5W 100 ml Premix Bag ONE (07:27)
[2021-11-08] MEDS ORDERED: Milrinone 10 MG/10 ML VIAL ONE (10:02)
[2021-11-08] MEDS ORDERED: HYDROcodone/Acetaminophen 5/325 mg Tablet PO PRN ×2 (11:27)
[2021-11-08] MEDS ORDERED: hydrALAZINE 20 MG/ML VIAL SLOW IVP PRN (11:27)
[2021-11-08] MEDS ORDERED: DOPamine 400 MG/D5W 250 ML 250 ML IVPB PRN (11:27)
[2021-11-08] MEDS ORDERED: Bisacodyl 10 MG SUPP PR PRN (11:27)
[2021-11-08] MEDS ORDERED: Fentanyl 100 MCG/2 ML VIAL SLOW IVP PRN (11:27)
[2021-11-08] MEDS ORDERED: NOREPINEPHRINE 8 MG/250 ML-D5W 250 ML IVPB PRN (11:27)
[2021-11-08] MEDS ORDERED: Bisacodyl 5 MG TAB PO PRN (11:27)
[2021-11-08] MEDS ORDERED: niCARdipine 25 MG in Sodium Chloride 0.9% 250 ML 250 ML IVPB PRN (11:27)
[2021-11-08] MEDS ORDERED: Morphine 2 MG/ML VIAL SLOW IVP PRN (11:27)
[2021-11-08] MEDS ORDERED: Hetastarch 6% 500 ML 500 ML IVPB PRN (11:27)
[2021-11-08] MEDS ORDERED: Post-Op Insulin Drip Protocol IVPB ONE (11:27)
[2021-11-08] MEDS ORDERED: Guaifenesin DM 100-10/5 ML UDCUP PO PRN (11:27)
[2021-11-08] MEDS ORDERED: Potassium Chloride 20 MEQ/100 ML PREMIX BAG IVPB PRN (11:27)
[2021-11-08] MEDS ORDERED: Promethazine HCl 25 MG/ML VIAL IM PRN (11:27)
[2021-11-08] MEDS ORDERED: Mag-Al 1200 mg/1200 mg/30 ML UDCUP PO PRN (11:27)
[2021-11-08 11:50] LABS: Actual Bicarbonate (HCO3a) 25.6 mEq/L (22-28); Base Excess (BEa) 0.6 mEq/L (-2.0 to +3.0); Calcium, Ionized (arterial) 1.05 mmol/L (1.12-1.30); Carboxyhemoglobin (COHb) 0.2 gm% (0.0-3.0); Hemoglobin (Hb) 10.5 g/dL (14.0-18.0); Potassium - ABG Lab 3.49 mmol/L (3.70-5.30); pH, Arterial 7.39 (7.35-7.45)
[2021-11-08 11:51] LABS: Puncture Site Arterial Line
[2021-11-08] MEDS: Nitroglycerin 50 MG/250 ML BOT 250 ML IVPB PRN ×2 (11:55→21:10)
[2021-11-08] MEDS ORDERED: Dextrose 50% Abboject 50 ML SYRINGE SLOW IVP PRN (12:00)
[2021-11-08] MEDS ORDERED: HUMULIN R 100 UNITS in Sodium Chloride 0.9% 100 ML IVPB SCH (12:00)
[2021-11-08] MEDS ORDERED: Dextrose 5% in Water 1,000 ML IV PRN (12:00)
[2021-11-08 12:11] LABS: Hemoglobin 9.9 g/dL (14.0-18.0); Mean Corpuscular HGB CONC 31.1 g/dL (32.0-36.0); Mean Corpuscular Hemoglobin 24.1 pg (27.0-31.0); Mean Corpuscular Volume 77.5 fL (78.0-98.0); Red Blood Cell (RBC) Count 4.11 mill/uL (4.70-6.10); White Blood Cell (WBC) Count 12.2 thou/uL (4.8-10.8)
[2021-11-08] MEDS: Lactated Ringer's 1,000 ML IV SCH ×2 (12:16→22:12)
[2021-11-08 12:17] LABS: Anion Gap 12 mmol/L (10-20); BUN (Urea Nitrogen) 24 mg/dL (8.4-25.7); Calc. Creatinine Clearance 80 mL/min (70-130); Calcium 7.2 mg/dL (7.8-10.44); Carbon Dioxide 22 mmol/L (23-31); Chloride 112 mmol/L (98-107); Estimated GFR 58; Glucose 127 mg/dL (80-115); Potassium 3.5 mmol/L (3.5-5.1); Sodium 142 mmol/L (136-145)
[2021-11-08 12:26] LABS: INR-International Normal Ratio 1.3; Prothrombin Time 16.3 sec (12.0-14.7)
[2021-11-08 12:33] LABS: PTT 108.5 sec (22.9-36.1)
[2021-11-08 12:34] LABS: #Basophils 0.1 thou/uL (0.0-0.2); #Eosinphils 0.1 thou/uL (0.0-0.7); #Lymphocytes 2.6 thou/uL (1.20-3.40); #Monocytes 0.8 thou/uL (0.11-0.59); #Neutrophils 8.7 thou/uL (1.40-6.50); %Basophils 0.6 % (0.0-1.0); %Eosinophils 0.9 % (0.0-10.0); %Monocytes 6.1 % (0.0-10.0); %Neutrophils 71.4 % (42.0-75.0); Band 14 % (5-11); Hypochromia SLIGHT = 6-15 cells (100X) (0-5/hpf); Lymphocytes 19 % (21-51); MDiff Complete? YES; Mean Platelet Volume 10.7 fL (7.4-10.4); Monocytes 2 % (0-10); Neutrophil 65 % (42-75); Platelet Count 117 thou/uL (130-400); Platelet Morphology Comment Appears Decreased; Polychromasia SLIGHT = 2-3 cells (100X) (0-2/hpf); RBC Distribution Width 18.3 % (11.5-14.5)
[2021-11-08 15:52] LABS: Actual Bicarbonate (HCO3a) 21.4 mEq/L (22-28); Base Excess (BEa) -3.6 mEq/L (-2.0 to +3.0); CO2 Tension 38.8 mmHg (35.0-45.0); Calcium, Ionized (arterial) 1.03 mmol/L (1.12-1.30); Carboxyhemoglobin (COHb) 0.5 gm% (0.0-3.0); Hemoglobin (Hb) 10.7 g/dL (14.0-18.0); O2 Tension (PaO2), arterial 148.3 mmHg (> 70.0); Potassium - ABG Lab 3.77 mmol/L (3.70-5.30); pH, Arterial 7.36 (7.35-7.45)
[2021-11-08 15:53] LABS: Puncture Site Arterial Line
[2021-11-08] MEDS: Fentanyl 100 MCG/2 ML VIAL SLOW IVP PRN (16:21)
[2021-11-08 19:33] LABS: Hemoglobin 10.5 g/dL (14.0-18.0)
[2021-11-08 19:51] LABS: Potassium 4.1 mmol/L (3.5-5.1)
[2021-11-08] MEDS: Famotidine/PF 20 mg/2ml Vial SLOW IVP SCH (21:12)
[2021-11-08] MEDS: Amiodarone 200 MG TAB PO SCH (21:13)
[2021-11-08] MEDS: Ondansetron PF 4 MG/2 ML Vial IVP PRN (21:13)
[2021-11-08] MEDS: Acetaminophen 325 MG TAB PO PRN (21:13)
[2021-11-08] MEDS: Atorvastatin Calcium 40 MG TAB PO SCH (21:13)
[2021-11-09] MEDS: Insulin Regular 300 UNITS/3 ML VIAL SC PRN ×3 (05:00→20:19)
[2021-11-09 05:17] LABS: Anion Gap 11 mmol/L (10-20); BUN (Urea Nitrogen) 24 mg/dL (8.4-25.7); Calc. Creatinine Clearance 81 mL/min (70-130); Calcium 7.7 mg/dL (7.8-10.44); Carbon Dioxide 23 mmol/L (23-31); Chloride 110 mmol/L (98-107); Estimated GFR 55; Glucose 144 mg/dL (80-115); Potassium 4.1 mmol/L (3.5-5.1); Sodium 140 mmol/L (136-145)
[2021-11-09] MEDS: Acetaminophen 325 MG TAB PO PRN (05:17)
[2021-11-09] MEDS: Ondansetron PF 4 MG/2 ML Vial IVP PRN (05:17)
[2021-11-09 05:18] LABS: #Monocytes 1.1 thou/uL (0.11-0.59); #Neutrophils 9.2 thou/uL (1.40-6.50); %Basophils 0.1 % (0.0-1.0); %Lymphocytes 8.8 % (21.0-51.0); %Monocytes 9.8 % (0.0-10.0); %Neutrophils 81.2 % (42.0-75.0); Hemoglobin 10.6 g/dL (14.0-18.0); Mean Corpuscular HGB CONC 30.7 g/dL (32.0-36.0); Mean Corpuscular Hemoglobin 23.8 pg (27.0-31.0); Mean Corpuscular Volume 77.6 fL (78.0-98.0); Mean Platelet Volume 10.9 fL (7.4-10.4); Platelet Count 141 thou/uL (130-400); RBC Distribution Width 18.6 % (11.5-14.5); Red Blood Cell (RBC) Count 4.45 mill/uL (4.70-6.10); White Blood Cell (WBC) Count 11.3 thou/uL (4.8-10.8)
[2021-11-09] MEDS: Amiodarone 450 MG, Admixture Fee 1 EACH in Dextrose 5% in Water 250 ML IVPB SCH ×2 (05:18→14:33)
[2021-11-09] MEDS: Amiodarone 200 MG TAB PO SCH ×2 (08:46→20:18)
[2021-11-09] MEDS: Famotidine/PF 20 mg/2ml Vial SLOW IVP SCH ×2 (08:46→20:18)
[2021-11-09] MEDS: Aspirin 325 MG TAB PO SCH (08:46)
[2021-11-09] MEDS: Polyethylene Glycol 3350 17 GM Packet PO SCH (08:47)
[2021-11-09] MEDS ORDERED: Magnesium 2 GM/50 ML(in water) 2 GM in Premix Bag 1 BAG IVPB SCH (09:00)
[2021-11-09] MEDS ORDERED: Metoprolol Tartrate 5 MG/5 ML VIAL IVP SCH (09:30)
[2021-11-09] MEDS ORDERED: Insulin Glargine 30 UNITS/0.3 ML VIAL SC PRN (11:54)
[2021-11-09] MEDS: Lactated Ringer's 1,000 ML IV SCH (16:57)
[2021-11-09] MEDS: Atorvastatin Calcium 40 MG TAB PO SCH (20:18)
[2021-11-10] MEDS: Insulin Regular 300 UNITS/3 ML VIAL SC PRN ×3 (00:15→22:33)
[2021-11-10] MEDS: Fentanyl 100 MCG/2 ML VIAL SLOW IVP PRN (05:36)
[2021-11-10 05:49] LABS: Anion Gap 13 mmol/L (10-20); BUN (Urea Nitrogen) 30 mg/dL (8.4-25.7); Calc. Creatinine Clearance 61 mL/min (70-130); Calcium 7.7 mg/dL (7.8-10.44); Carbon Dioxide 22 mmol/L (23-31); Chloride 105 mmol/L (98-107); Estimated GFR 41; Glucose 136 mg/dL (80-115); Potassium 3.8 mmol/L (3.5-5.1); Sodium 136 mmol/L (136-145)
[2021-11-10 05:50] LABS: #Lymphocytes 1.3 thou/uL (1.20-3.40); #Monocytes 1.7 thou/uL (0.11-0.59); #Neutrophils 9.9 thou/uL (1.40-6.50); %Basophils 0.1 % (0.0-1.0); %Eosinophils 0.1 % (0.0-10.0); %Monocytes 12.9 % (0.0-10.0); %Neutrophils 76.9 % (42.0-75.0); Anisocytosis SLIGHT = 6-15 cells (100X) (0-5/hpf); Hemoglobin 10.8 g/dL (14.0-18.0); MDiff Complete? YES; Mean Corpuscular HGB CONC 31.6 g/dL (32.0-36.0); Mean Corpuscular Hemoglobin 24.5 pg (27.0-31.0); Mean Corpuscular Volume 77.6 fL (78.0-98.0); Mean Platelet Volume 11.4 fL (7.4-10.4); Platelet Count 148 thou/uL (130-400); RBC Distribution Width 18.9 % (11.5-14.5); Red Blood Cell (RBC) Count 4.41 mill/uL (4.70-6.10); White Blood Cell (WBC) Count 12.9 thou/uL (4.8-10.8)
[2021-11-10] MEDS ORDERED: Digoxin 0.5 MG/2 ML AMP SLOW IVP SCH (06:15)
[2021-11-10] MEDS: Lactated Ringer's 1,000 ML IV SCH (06:48)
[2021-11-10] MEDS: Amiodarone 450 MG, Admixture Fee 1 EACH in Dextrose 5% in Water 250 ML IVPB SCH (07:10)
[2021-11-10] MEDS ORDERED: Nitroglycerin 0.4 MG TAB (25 Tab Bottle) SL PRN (07:23)
[2021-11-10] MEDS ORDERED: Dextrose 50% Abboject 50 ML SYRINGE SLOW IVP PRN (07:45)
[2021-11-10] MEDS ORDERED: HUMULIN R 100 UNITS in Sodium Chloride 0.9% 100 ML IVPB SCH (07:45)
[2021-11-10] MEDS ORDERED: Dextrose 5% in Water 1,000 ML IV PRN (07:45)
[2021-11-10] MEDS: Polyethylene Glycol 3350 17 GM Packet PO SCH (08:06)
[2021-11-10] MEDS: Aspirin 325 MG TAB PO SCH (08:06)
[2021-11-10] MEDS: Furosemide 40 MG TAB PO SCH (08:07)
[2021-11-10] MEDS: Metoprolol Tartrate 25 MG TAB PO SCH ×2 (08:07→20:06)
[2021-11-10] MEDS: Amiodarone 200 MG TAB PO SCH ×2 (08:09→20:06)
[2021-11-10] MEDS: Famotidine 20 MG TAB PO SCH (08:09)
[2021-11-10] MEDS: Potassium Chloride 10 MEQ TAB PO SCH (08:09)
[2021-11-10] MEDS ORDERED: Amiodarone 450 MG, Admixture Fee 1 EACH in Dextrose 5% in Water 250 ML IVPB SCH (09:30)
[2021-11-10 16:07] LABS: Actual Bicarbonate (HCO3v) 27 mEq/L (22-28); Analyzer IN Cardio OR; Base Excess 1.4 mEq/L (-2.0 to +3.0); Calcium, Ionized (venous) 1.03 mmol/L (1.16-1.32); Chloride (VBG) 108 mmol/L (98-106); Hemoglobin (Hb) 8.1 g/dL (12.6-17.4); Potassium (VBG) 3.92 mmol/L (3.70-5.30); Sodium 138.3 mmol/L (133-146); pH (venous) 7.35 (7.32-7.43)
[2021-11-10 16:07] LABS: Actual Bicarbonate (HCO3a) 25.5 mEq/L (22-28); Analyzer IN Cardio OR; Base Excess (BEa) 1.8 mEq/L (-2.0 to +3.0); CO2 Tension 36.3 mmHg (35.0-45.0); Calcium, Ionized (arterial) 1.07 mmol/L (1.12-1.30); Carboxyhemoglobin (COHb) 0.4 gm% (0.0-3.0); Hemoglobin (Hb) 9.2 g/dL (14.0-18.0); O2 Tension (PaO2), arterial 371.5 mmHg (> 70.0); Potassium - ABG Lab 3.39 mmol/L (3.70-5.30); pH, Arterial 7.47 (7.35-7.45)
[2021-11-10 16:07] LABS: Actual Bicarbonate (HCO3a) 25.3 mEq/L (22-28); Analyzer IN Cardio OR; Base Excess (BEa) 1.4 mEq/L (-2.0 to +3.0); CO2 Tension 37.1 mmHg (35.0-45.0); Calcium, Ionized (arterial) 1.09 mmol/L (1.12-1.30); Carboxyhemoglobin (COHb) 0.6 gm% (0.0-3.0); Hemoglobin (Hb) 9.7 g/dL (14.0-18.0); O2 Tension (PaO2), arterial 294.2 mmHg (> 70.0); Potassium - ABG Lab 3.37 mmol/L (3.70-5.30); pH, Arterial 7.45 (7.35-7.45)
[2021-11-10 16:07] LABS: Actual Bicarbonate (HCO3a) 23.2 mEq/L (22-28); Analyzer IN Cardio OR; Base Excess (BEa) -1.9 mEq/L (-2.0 to +3.0); CO2 Tension 40.7 mmHg (35.0-45.0); Calcium, Ionized (arterial) 1.05 mmol/L (1.12-1.30); Carboxyhemoglobin (COHb) 1.5 gm% (0.0-3.0); Hemoglobin (Hb) 7.8 g/dL (14.0-18.0); O2 Tension (PaO2), arterial 429.6 mmHg (> 70.0); Potassium - ABG Lab 4.02 mmol/L (3.70-5.30); pH, Arterial 7.37 (7.35-7.45)
[2021-11-10 16:08] LABS: Analyzer IN Cardio OR; CO2 Tension 31.5 mmHg (35.0-45.0); Carboxyhemoglobin (COHb) 0.4 gm% (0.0-3.0); Hemoglobin (Hb) 13.1 g/dL (14.0-18.0); O2 Tension (PaO2), arterial 493.2 mmHg (> 70.0); Potassium - ABG Lab 3.49 mmol/L (3.70-5.30); pH, Arterial 7.46 (7.35-7.45)
[2021-11-10 16:08] LABS: Actual Bicarbonate (HCO3a) 26.5 mEq/L (22-28); Analyzer IN Cardio OR; Base Excess (BEa) 0.6 mEq/L (-2.0 to +3.0); CO2 Tension 49.6 mmHg (35.0-45.0); Calcium, Ionized (arterial) 1.05 mmol/L (1.12-1.30); Carboxyhemoglobin (COHb) 1.2 gm% (0.0-3.0); Hemoglobin (Hb) 7.8 g/dL (14.0-18.0); O2 Tension (PaO2), arterial 376.5 mmHg (> 70.0); Potassium - ABG Lab 3.91 mmol/L (3.70-5.30); pH, Arterial 7.35 (7.35-7.45)
[2021-11-10 16:08] LABS: Actual Bicarbonate (HCO3a) 21.9 mEq/L (22-28); Analyzer IN Cardio OR; Base Excess (BEa) -2.6 mEq/L (-2.0 to +3.0); CO2 Tension 36.5 mmHg (35.0-45.0); Calcium, Ionized (arterial) 1.03 mmol/L (1.12-1.30); Carboxyhemoglobin (COHb) 0.3 gm% (0.0-3.0); Hemoglobin (Hb) 9.6 g/dL (14.0-18.0); Potassium - ABG Lab 3.45 mmol/L (3.70-5.30)
[2021-11-10 16:08] LABS: Puncture Site Arterial Line
[2021-11-10 16:09] LABS: Puncture Site Arterial Line
[2021-11-10 16:10] LABS: Puncture Site Arterial Line
[2021-11-10 16:10] LABS: Puncture Site Arterial Line
[2021-11-10 16:10] LABS: Puncture Site Arterial Line
[2021-11-10 16:11] LABS: Puncture Site Arterial Line
[2021-11-10] MEDS: Acetaminophen 325 MG TAB PO PRN (20:07)
[2021-11-10] MEDS: Atorvastatin Calcium 40 MG TAB PO SCH (20:08)
[2021-11-11 05:32] LABS: #Eosinphils 0.1 thou/uL (0.0-0.7); #Lymphocytes 1.6 thou/uL (1.20-3.40); #Monocytes 1.7 thou/uL (0.11-0.59); #Neutrophils 9.3 thou/uL (1.40-6.50); %Basophils 0.1 % (0.0-1.0); %Eosinophils 0.7 % (0.0-10.0); %Lymphocytes 12.8 % (21.0-51.0); %Monocytes 13.6 % (0.0-10.0); %Neutrophils 72.8 % (42.0-75.0); Hemoglobin 10.5 g/dL (14.0-18.0); Mean Corpuscular HGB CONC 30.6 g/dL (32.0-36.0); Mean Corpuscular Hemoglobin 23.7 pg (27.0-31.0); Mean Corpuscular Volume 77.5 fL (78.0-98.0); Mean Platelet Volume 11.4 fL (7.4-10.4); Platelet Count 153 thou/uL (130-400); RBC Distribution Width 18.5 % (11.5-14.5); Red Blood Cell (RBC) Count 4.43 mill/uL (4.70-6.10); White Blood Cell (WBC) Count 12.7 thou/uL (4.8-10.8)
[2021-11-11 05:38] LABS: Anion Gap 11 mmol/L (10-20); BUN (Urea Nitrogen) 29 mg/dL (8.4-25.7); Calc. Creatinine Clearance 67 mL/min (70-130); Calcium 8.2 mg/dL (7.8-10.44); Carbon Dioxide 25 mmol/L (23-31); Chloride 105 mmol/L (98-107); Estimated GFR 45; Glucose 118 mg/dL (80-115); Potassium 4.1 mmol/L (3.5-5.1); Sodium 137 mmol/L (136-145)
[2021-11-11] MEDS: Insulin Regular 300 UNITS/3 ML VIAL SC PRN ×2 (06:18→21:15)
[2021-11-11] MEDS ORDERED: Insulin Glargine 30 UNITS/0.3 ML VIAL SC PRN (07:34)
[2021-11-11] MEDS: Metoprolol Tartrate 25 MG TAB PO SCH (09:15)
[2021-11-11] MEDS: Aspirin 325 MG TAB PO SCH (09:15)
[2021-11-11] MEDS: Amiodarone 200 MG TAB PO SCH ×2 (09:15→21:13)
[2021-11-11] MEDS: Furosemide 40 MG TAB PO SCH (09:15)
[2021-11-11] MEDS: Potassium Chloride 10 MEQ TAB PO SCH (09:15)
[2021-11-11] MEDS: Famotidine 20 MG TAB PO SCH (09:15)
[2021-11-11] MEDS: Polyethylene Glycol 3350 17 GM Packet PO SCH (09:16)
[2021-11-11] MEDS: Lisinopril 10 MG TAB PO SCH (18:12)
[2021-11-11] MEDS: Atorvastatin Calcium 40 MG TAB PO SCH (21:13)
[2021-11-12 05:12] LABS: Anion Gap 12 mmol/L (10-20); BUN (Urea Nitrogen) 30 mg/dL (8.4-25.7); Calc. Creatinine Clearance 76 mL/min (70-130); Carbon Dioxide 23 mmol/L (23-31); Chloride 106 mmol/L (98-107); Estimated GFR 52; Glucose 117 mg/dL (80-115); Potassium 3.9 mmol/L (3.5-5.1); Sodium 137 mmol/L (136-145)
[2021-11-12] MEDS: Insulin Regular 300 UNITS/3 ML VIAL SC PRN (06:08)
[2021-11-12] MEDS ORDERED: Amlodipine 5 MG TAB PO SCH (09:15)
[2021-11-12] MEDS: Lisinopril 10 MG TAB PO SCH ×2 (09:21→20:48)
[2021-11-12] MEDS: Aspirin 325 MG TAB PO SCH (09:21)
[2021-11-12] MEDS: Furosemide 40 MG TAB PO SCH (09:21)
[2021-11-12] MEDS: Potassium Chloride 10 MEQ TAB PO SCH (09:21)
[2021-11-12] MEDS: Famotidine 20 MG TAB PO SCH ×2 (09:21→20:49)
[2021-11-12] MEDS: Polyethylene Glycol 3350 17 GM Packet PO SCH (09:24)
[2021-11-12 15:27] VITALS: BMI 40.0
[2021-11-12] MEDS: Amiodarone 200 MG TAB PO SCH ×3 (16:30→20:49)
[2021-11-12] MEDS: Atorvastatin Calcium 40 MG TAB PO SCH (20:49)
[2021-11-13] MEDS ORDERED: Amlodipine 5 MG TAB PO SCH (09:00)
[2021-11-13] MEDS: Potassium Chloride 10 MEQ TAB PO SCH (09:19)
[2021-11-13] MEDS: Furosemide 40 MG TAB PO SCH (09:19)
[2021-11-13] MEDS: Lisinopril 10 MG TAB PO SCH ×2 (09:19→21:14)
[2021-11-13] MEDS: Famotidine 20 MG TAB PO SCH ×2 (09:20→21:14)
[2021-11-13] MEDS: Polyethylene Glycol 3350 17 GM Packet PO SCH (09:20)
[2021-11-13] MEDS: Amiodarone 200 MG TAB PO SCH ×3 (09:20→21:14)
[2021-11-13] MEDS: Aspirin 325 MG TAB PO SCH (09:20)
[2021-11-13] MEDS ORDERED: Metolazone 2.5 MG TAB PO SCH (13:30)
[2021-11-13] MEDS: Atorvastatin Calcium 40 MG TAB PO SCH (21:20)
[2021-11-14] MEDS: Furosemide 40 MG TAB PO SCH ×2 (09:44→16:18)
[2021-11-14] MEDS: Metolazone 2.5 MG TAB PO SCH (09:44)
[2021-11-14] MEDS: Famotidine 20 MG TAB PO SCH ×2 (09:44→22:16)
[2021-11-14] MEDS: Potassium Chloride 10 MEQ TAB PO SCH ×2 (09:44→16:18)
[2021-11-14] MEDS: Polyethylene Glycol 3350 17 GM Packet PO SCH (09:44)
[2021-11-14] MEDS: Lisinopril 10 MG TAB PO SCH ×2 (09:44→22:16)
[2021-11-14] MEDS: Aspirin 325 MG TAB PO SCH (09:44)
[2021-11-14] MEDS: Amiodarone 200 MG TAB PO SCH ×3 (09:44→22:16)
[2021-11-14] MEDS: Atorvastatin Calcium 40 MG TAB PO SCH (22:16)
[2021-11-15] MEDS: Potassium Chloride 10 MEQ TAB PO SCH ×2 (09:41→17:21)
[2021-11-15] MEDS: Amiodarone 200 MG TAB PO SCH ×3 (09:41→21:34)
[2021-11-15] MEDS: Metolazone 2.5 MG TAB PO SCH (09:41)
[2021-11-15] MEDS: Furosemide 40 MG TAB PO SCH ×2 (09:42→14:29)
[2021-11-15] MEDS: Aspirin 325 MG TAB PO SCH (09:42)
[2021-11-15] MEDS: Famotidine 20 MG TAB PO SCH ×2 (09:42→21:34)
[2021-11-15] MEDS: Polyethylene Glycol 3350 17 GM Packet PO SCH (09:43)
[2021-11-15] MEDS: Atorvastatin Calcium 40 MG TAB PO SCH (21:33)
[2021-11-15] MEDS: Lisinopril 20 MG TAB PO SCH (21:34)
[2021-11-16 05:06] LABS: Anion Gap 11 mmol/L (10-20); BUN (Urea Nitrogen) 27 mg/dL (8.4-25.7); Calc. Creatinine Clearance 76 mL/min (70-130); Calcium 8.5 mg/dL (7.8-10.44); Carbon Dioxide 28 mmol/L (23-31); Chloride 104 mmol/L (98-107); Estimated GFR 54; Glucose 106 mg/dL (80-115); Potassium 3.4 mmol/L (3.5-5.1); Sodium 140 mmol/L (136-145)
[2021-11-16] MEDS: Potassium Chloride 10 MEQ TAB PO SCH (09:39)
[2021-11-16] MEDS: Furosemide 40 MG TAB PO SCH (09:40)
[2021-11-16] MEDS: Famotidine 20 MG TAB PO SCH ×2 (09:40→20:43)
[2021-11-16] MEDS: Metolazone 2.5 MG TAB PO SCH (09:40)
[2021-11-16] MEDS: Amiodarone 200 MG TAB PO SCH ×3 (09:40→20:42)
[2021-11-16] MEDS: Aspirin 325 MG TAB PO SCH (09:40)
[2021-11-16] MEDS: Lisinopril 20 MG TAB PO SCH ×2 (09:40→20:43)
[2021-11-16] MEDS: Polyethylene Glycol 3350 17 GM Packet PO SCH (09:41)
[2021-11-16] MEDS ORDERED: Potassium Chloride 20 MEQ TAB PO SCH (12:00)
[2021-11-16] MEDS: Atorvastatin Calcium 40 MG TAB PO SCH (20:43)
[2021-11-17] MEDS: Potassium Chloride 10 MEQ TAB PO SCH (08:36)
[2021-11-17] MEDS: Famotidine 20 MG TAB PO SCH (08:36)
[2021-11-17] MEDS: Metolazone 2.5 MG TAB PO SCH (08:36)
[2021-11-17] MEDS: Aspirin 325 MG TAB PO SCH (08:36)
[2021-11-17] MEDS: Amiodarone 200 MG TAB PO SCH (08:37)
[2021-11-17] MEDS: Furosemide 40 MG TAB PO SCH (08:48)
[2021-11-17] MEDS: Polyethylene Glycol 3350 17 GM Packet PO SCH (08:49)
[2021-11-17] MEDS: Lisinopril 20 MG TAB PO SCH (08:49)
[2021-11-17] MEDS ORDERED: Amlodipine 5 MG TAB PO SCH ×2 (09:15→09:30)
[2021-11-17 12:21] VITALS: TEMP 98.2
[2021-11-17 13:32] VITALS: BP 144/67
[2021-11-17] MEDS ORDERED: Amiodarone 200 MG TAB PO SCH ×2 (21:00)
[2021-11-18] MEDS ORDERED: Amlodipine 5 MG TAB PO SCH (09:00)
== END 2021-11-17 13:20 | disposition home health service (06) | DRG 234 ==
LOC: SURG A 11-08 05:32 → CCU 11-08 10:19 → 2NO 11-12 17:46
PROVIDERS: ADMIT Thoracic Surgery (Cardiothoracic Vascular Surgery); ATTEND Thoracic Surgery (Cardiothoracic Vascular Surgery)
PROC: 02100Z9 Bypass Coronary Artery, One Artery from Left Internal Mammary, Open Approach (ICD-10-PCS; principal; 2021-11-08)
PROC: 02580ZZ Destruction of Conduction Mechanism, Open Approach (ICD-10-PCS; 2021-11-08)
PROC: 021109W Bypass Coronary Artery, Two Arteries from Aorta with Autologous Venous Tissue, Open Approach (ICD-10-PCS; 2021-11-08)
PROC: 06BQ4ZZ Excision of Left Saphenous Vein, Percutaneous Endoscopic Approach (ICD-10-PCS; 2021-11-08)
PROC: 5A1221Z Performance of Cardiac Output, Continuous (ICD-10-PCS; 2021-11-08)
PROC: 02L70CK Occlusion of Left Atrial Appendage with Extraluminal Device, Open Approach (ICD-10-PCS; 2021-11-08)
PROC: 30233N1 Transfusion of Nonautologous Red Blood Cells into Peripheral Vein, Percutaneous Approach (ICD-10-PCS; 2021-11-08)
DX: I25.10 Atherosclerotic heart disease of native coronary artery without angina pectoris (principal); I47.1 Supraventricular tachycardia; I13.0 Hypertensive heart and chronic kidney disease with heart failure and stage 1 through stage 4 chronic kidney disease, or unspecified chronic kidney disease; I50.9 Heart failure, unspecified; I48.0 Paroxysmal atrial fibrillation; D17.0 Benign lipomatous neoplasm of skin and subcutaneous tissue of head, face and neck; E78.00 Pure hypercholesterolemia, unspecified; E87.6 Hypokalemia; N18.2 Chronic kidney disease, stage 2 (mild); E11.22 Type 2 diabetes mellitus with diabetic chronic kidney disease; Z20.822 Contact with and (suspected) exposure to COVID-19; Z88.0 Allergy status to penicillin; Z79.899 Other long term (current) drug therapy; Z79.84 Long term (current) use of oral hypoglycemic drugs; Z79.01 Long term (current) use of anticoagulants; Z98.890 Other specified postprocedural states
CPT/HCPCS: 36415; 36416; 36430; 71045; 80048; 82805; 82947; 85025; 85027; 85610; 85730; 86850; 86900; 86901; 87811; 93005; 93010; 93798; 94002; 94150; C1751; C1776; J0282; J1160; J1642; J1644; J1815; J1956; J2001; J2150; J2250; J2260; J2405; J2440; J2704; J2720; J3010; J3370; J3475; J3480; J3490; J7070; J7120; P9016; P9045; S0017; S0028

== ENCOUNTER 2022-05-25 22:11 | Inpatient (IN) | payer MEDICARE ==
[2022-05-25] MEDS ORDERED: Nitroglycerin 50 MG/250 ML BOT 0 ML ONE (22:17)
[2022-05-25] MEDS ORDERED: Labetalol HCl 100 MG/20 ML VIAL ONE (22:24)
[2022-05-25] MEDS ORDERED: Furosemide 40 MG/4 ML VIAL ONE ×2 (22:32→22:35)
[2022-05-25] MEDS ORDERED: Nitroglycerin 50 MG/250 ML BOT 250 ML ONE (22:35)
[2022-05-25 22:40] LABS: #Eosinphils 0.1 thou/uL (0.0-0.7); #Lymphocytes 3.2 thou/uL (1.20-3.40); #Monocytes 1.3 thou/uL (0.11-0.59); #Neutrophils 11.9 thou/uL (1.40-6.50); %Basophils 0.1 % (0.0-1.0); %Eosinophils 0.5 % (0.0-10.0); %Lymphocytes 19.2 % (21.0-51.0); %Monocytes 7.9 % (0.0-10.0); %Neutrophils 72.3 % (42.0-75.0); Hemoglobin 13.3 g/dL (14.0-18.0); Mean Corpuscular HGB CONC 29.5 g/dL (32.0-36.0); Mean Corpuscular Hemoglobin 22.6 pg (27.0-31.0); Mean Corpuscular Volume 76.7 fl (78.0-98.0); Mean Platelet Volume 9.4 fL (7.4-10.4); Platelet Count 272 10x3/uL (130-400); RBC Distribution Width 18.4 % (11.5-14.5); Red Blood Cell (RBC) Count 5.88 mill/uL (4.70-6.10); White Blood Cell (WBC) Count 16.5 10x3/uL (4.8-10.8)
[2022-05-25 22:42] LABS: Actual Bicarbonate (HCO3a) 23.7 mEq/L (22-28); Analyzer IN Cardio ER; Base Excess (BEa) -3.7 mEq/L (-2.0 to +3.0); CO2 Tension 52.9 mmHg (35.0-45.0); Calcium, Ionized (arterial) 1.18 mmol/L (1.12-1.30); Carboxyhemoglobin (COHb) 1.1 gm% (0.0-3.0); Hemoglobin (Hb) 13.4 g/dL (14.0-18.0); O2 Tension (PaO2), arterial 110.9 mmHg (> 70.0); Potassium - ABG Lab 3.83 mmol/L (3.70-5.30); pH, Arterial 7.27 (7.35-7.45)
[2022-05-25 22:45] LABS: ALV-art Gradient 250.775 mmHg (0-20); Puncture Site RRA
[2022-05-25 22:56] LABS: ALT (SGPT) 59 U/L (8-55); AST (SGOT) 36 U/L (5-34); Albumin 3.9 g/dL (3.4-4.8); Alkaline Phosphatase 111 U/L (40-110); Anion Gap 18 mmol/L (10-20); BUN (Urea Nitrogen) 35 mg/dL (8.4-25.7); Bilirubin, Total 0.9 mg/dL (0.2-1.2); Calc. Creatinine Clearance 0 mL/min (70-130); Calcium 9.2 mg/dL (7.8-10.44); Carbon Dioxide 21 mmol/L (23-31); Chloride 105 mmol/L (98-107); Estimated GFR 31; Globulin 3.7 g/dL (2.4-3.5); Glucose 203 mg/dL (83-110); Potassium 4.1 mmol/L (3.5-5.1); Protein, Total 7.6 g/dL (5.8-8.1); Sodium 140 mmol/L (136-145)
[2022-05-25] MEDS ORDERED: Vancomycin 1 GM/200 ML (FROZEN) BAG ONE (23:04)
[2022-05-25 23:16] LABS: CKMB 2.8 ng/mL (0-6.6)
[2022-05-25] MEDS ORDERED: Aspirin Chewable 81 MG TAB ONE (23:38)
[2022-05-26] MEDS ORDERED: Ondansetron ODT 4 MG TAB PO PRN (00:09)
[2022-05-26] MEDS ORDERED: Senokot S 8.6-50 MG TAB PO PRN (00:09)
[2022-05-26 01:35] LABS: Actual Bicarbonate (HCO3a) 25.6 mEq/L (22-28); Analyzer IN Cardio ER; Base Excess (BEa) 1.4 mEq/L (-2.0 to +3.0); CO2 Tension 38.7 mmHg (35.0-45.0); Calcium, Ionized (arterial) 1.13 mmol/L (1.12-1.30); Carboxyhemoglobin (COHb) 0.7 gm% (0.0-3.0); Hemoglobin (Hb) 12.2 g/dL (14.0-18.0); O2 Tension (PaO2), arterial 186.9 mmHg (> 70.0); Potassium - ABG Lab 3.25 mmol/L (3.70-5.30); pH, Arterial 7.44 (7.35-7.45)
[2022-05-26 01:39] LABS: ALV-art Gradient 156.875 mmHg (0-20); Puncture Site RRA
[2022-05-26 02:01] LABS: Lactic Acid 1.2 mmol/L (0.5-2.2)
[2022-05-26] MEDS ORDERED: HumaLOG 300 UNITS/3 ML VIAL SC SCH (02:15)
[2022-05-26 02:16] LABS: Troponin I 0.176 ng/mL (< 0.028)
[2022-05-26] MEDS ORDERED: Dextrose 50% Abboject 50 ML SYRINGE IVP PRN (02:30)
[2022-05-26] MEDS ORDERED: Dextrose 5% in Water 1,000 ML IV PRN (02:30)
[2022-05-26] MEDS ORDERED: HumaLOG 300 UNITS/3 ML VIAL SC PRN (02:30)
[2022-05-26 04:44] LABS: Lactic Acid 1.1 mmol/L (0.5-2.2)
[2022-05-26 04:51] LABS: %Basophils 0.3 % (0.0-1.0); %Lymphocytes 8.2 % (21.0-51.0); %Monocytes 7.9 % (0.0-10.0); %Neutrophils 83.5 % (42.0-75.0); Hemoglobin 11.3 g/dL (14.0-18.0); Mean Corpuscular HGB CONC 31.3 g/dL (32.0-36.0); Mean Corpuscular Hemoglobin 23.7 pg (27.0-31.0); Mean Corpuscular Volume 75.8 fl (78.0-98.0); Platelet Count 197 10x3/uL (130-400); RBC Distribution Width 17.8 % (11.5-14.5); Red Blood Cell (RBC) Count 4.75 mill/uL (4.70-6.10)
[2022-05-26 05:02] LABS: ALT (SGPT) 52 U/L (8-55); AST (SGOT) 27 U/L (5-34); Albumin 3.5 g/dL (3.4-4.8); Alkaline Phosphatase 93 U/L (40-110); Anion Gap 14 mmol/L (10-20); BUN (Urea Nitrogen) 35 mg/dL (8.4-25.7); Bilirubin, Total 0.9 mg/dL (0.2-1.2); Calc. Creatinine Clearance 0 mL/min (70-130); Calcium 8.8 mg/dL (7.8-10.44); Carbon Dioxide 25 mmol/L (23-31); Chloride 105 mmol/L (98-107); Estimated GFR 36; Glucose 116 mg/dL (83-110); Magnesium 1.8 mg/dL (1.6-2.6); Potassium 3.4 mmol/L (3.5-5.1); Protein, Total 6.5 g/dL (5.8-8.1); Sodium 141 mmol/L (136-145)
[2022-05-26 05:03] LABS: Phosphorus 4.9 mg/dL (2.3-4.7)
[2022-05-26 05:13] LABS: Troponin I 0.223 ng/mL (< 0.028)
[2022-05-26] MEDS ORDERED: Electrolyte Replacement Protocol 1 EACH FS SCH (05:15)
[2022-05-26] MEDS ORDERED: Furosemide 40 MG/4 ML VIAL ONE (06:23)
[2022-05-26] MEDS: Furosemide 40 MG/4 ML VIAL SLOW IVP SCH ×2 (06:27→13:30)
[2022-05-26] MEDS ORDERED: Potassium Chloride 20 MEQ TAB PO SCH (08:00)
[2022-05-26] MEDS ORDERED: Magnesium 2 GM/50 ML(in water) 2 GM in Premix Bag 1 BAG IVPB SCH (08:00)
[2022-05-26] MEDS: Spironolactone 25 MG TAB PO SCH (08:05)
[2022-05-26] MEDS: Aspirin 325 MG TAB PO SCH (08:06)
[2022-05-26] MEDS: Allopurinol 300 MG TAB PO SCH (08:06)
[2022-05-26] MEDS ORDERED: Amlodipine 5 MG TAB ONE (08:08)
[2022-05-26] MEDS ORDERED: Aspirin 325 MG TAB ONE (08:08)
[2022-05-26] MEDS ORDERED: Potassium Chloride 20 MEQ TAB ONE (08:08)
[2022-05-26] MEDS ORDERED: Magnesium 2 GM/50 ML BAG (IN WATER) ONE (08:08)
[2022-05-26] MEDS ORDERED: Famotidine 20 MG TAB ONE (08:08)
[2022-05-26] MEDS ORDERED: Famotidine 20 MG TAB PO SCH (09:00)
[2022-05-26] MEDS ORDERED: Amlodipine 5 MG TAB PO SCH (09:00)
[2022-05-26] MEDS ORDERED: Empagliflozin 10 MG TAB PO SCH (09:30)
[2022-05-26 10:43] VITALS: BMI 39.1
[2022-05-26] MEDS: hydrALAZINE 25 MG TAB PO SCH (21:31)
[2022-05-26] MEDS: Atorvastatin Calcium 40 MG TAB PO SCH (21:31)
[2022-05-27] MEDS: Acetaminophen 325 MG TAB PO PRN (04:35)
[2022-05-27] MEDS: Furosemide 40 MG/4 ML VIAL SLOW IVP SCH ×2 (05:57→13:52)
[2022-05-27 06:04] LABS: #Basophils 0.1 thou/uL (0.0-0.2); #Lymphocytes 1.5 thou/uL (1.20-3.40); #Monocytes 1.1 thou/uL (0.11-0.59); #Neutrophils 8.5 thou/uL (1.40-6.50); %Basophils 0.5 % (0.0-1.0); %Eosinophils 0.3 % (0.0-10.0); %Monocytes 10.1 % (0.0-10.0); %Neutrophils 76.2 % (42.0-75.0); Hemoglobin 11.6 g/dL (14.0-18.0); Mean Corpuscular HGB CONC 31.1 g/dL (32.0-36.0); Mean Corpuscular Hemoglobin 23.7 pg (27.0-31.0); Mean Corpuscular Volume 76.2 fl (78.0-98.0); Mean Platelet Volume 9.8 fL (7.4-10.4); Platelet Count 198 10x3/uL (130-400); RBC Distribution Width 17.8 % (11.5-14.5); Red Blood Cell (RBC) Count 4.89 mill/uL (4.70-6.10); White Blood Cell (WBC) Count 11.2 10x3/uL (4.8-10.8)
[2022-05-27 06:23] LABS: Anion Gap 12 mmol/L (10-20); BUN (Urea Nitrogen) 31 mg/dL (8.4-25.7); Calc. Creatinine Clearance 61 mL/min (70-130); Calcium 9.1 mg/dL (7.8-10.44); Carbon Dioxide 28 mmol/L (23-31); Chloride 104 mmol/L (98-107); Estimated GFR 41; Glucose 131 mg/dL (83-110); Sodium 140 mmol/L (136-145)
[2022-05-27] MEDS: Empagliflozin 10 MG TAB PO SCH (08:23)
[2022-05-27] MEDS: Amiodarone 200 MG TAB PO SCH ×2 (08:23→22:05)
[2022-05-27] MEDS: Famotidine 20 MG TAB PO SCH (08:23)
[2022-05-27] MEDS: Carvedilol 25 MG TAB PO SCH ×2 (08:23→16:47)
[2022-05-27] MEDS: Allopurinol 300 MG TAB PO SCH (08:23)
[2022-05-27] MEDS: Aspirin 325 MG TAB PO SCH (08:23)
[2022-05-27] MEDS: hydrALAZINE 25 MG TAB PO SCH ×4 (08:24→23:37)
[2022-05-27] MEDS: Spironolactone 25 MG TAB PO SCH (08:24)
[2022-05-27] MEDS ORDERED: Amiodarone 200 MG TAB PO SCH (09:00)
[2022-05-27 19:06] LABS: Anion Gap 14 mmol/L (10-20); BUN (Urea Nitrogen) 41 mg/dL (8.4-25.7); Calc. Creatinine Clearance 50 mL/min (70-130); Carbon Dioxide 28 mmol/L (23-31); Chloride 102 mmol/L (98-107); Estimated GFR 32; Glucose 153 mg/dL (83-110); Potassium 4.2 mmol/L (3.5-5.1); Sodium 140 mmol/L (136-145)
[2022-05-27] MEDS: Atorvastatin Calcium 40 MG TAB PO SCH (22:05)
[2022-05-28 05:15] LABS: Hemoglobin 11.8 g/dL (14.0-18.0); Mean Corpuscular HGB CONC 29.9 g/dL (32.0-36.0); Mean Corpuscular Volume 77.1 fl (78.0-98.0); Mean Platelet Volume 9.6 fL (7.4-10.4); Platelet Count 215 10x3/uL (130-400); RBC Distribution Width 17.7 % (11.5-14.5); Red Blood Cell (RBC) Count 5.13 mill/uL (4.70-6.10)
[2022-05-28 05:29] LABS: Anion Gap 14 mmol/L (10-20); BUN (Urea Nitrogen) 39 mg/dL (8.4-25.7); Calc. Creatinine Clearance 54 mL/min (70-130); Calcium 9.2 mg/dL (7.8-10.44); Carbon Dioxide 27 mmol/L (23-31); Chloride 101 mmol/L (98-107); Estimated GFR 35; Glucose 116 mg/dL (83-110); Potassium 3.7 mmol/L (3.5-5.1); Sodium 138 mmol/L (136-145)
[2022-05-28] MEDS: Furosemide 40 MG/4 ML VIAL SLOW IVP SCH ×2 (05:42→15:24)
[2022-05-28 05:48] LABS: Eosinophils 2 % (0-10); Hypochromia SLIGHT = 6-15 cells (100X) (0-5/hpf); Lymphocytes 17 % (21-51); MDiff Complete? YES; Monocytes 11 % (0-10); Neutrophil 70 % (42-75); White Blood Cell (WBC) Count 9.4 10x3/uL (4.8-10.8)
[2022-05-28] MEDS: Aspirin 325 MG TAB PO SCH (09:24)
[2022-05-28] MEDS: Carvedilol 25 MG TAB PO SCH ×3 (09:24→17:30)
[2022-05-28] MEDS: Allopurinol 300 MG TAB PO SCH (09:25)
[2022-05-28] MEDS: Amiodarone 200 MG TAB PO SCH ×2 (09:25→21:28)
[2022-05-28] MEDS: Empagliflozin 10 MG TAB PO SCH (09:25)
[2022-05-28] MEDS: Famotidine 20 MG TAB PO SCH (09:25)
[2022-05-28] MEDS: Spironolactone 25 MG TAB PO SCH (09:26)
[2022-05-28] MEDS: Isosorbide Dinitrate 5 MG TAB PO SCH ×3 (09:26→21:28)
[2022-05-28] MEDS: hydrALAZINE 25 MG TAB PO SCH ×3 (09:27→21:28)
[2022-05-28] MEDS: Digoxin 0.5 MG/2 ML AMP SLOW IVP SCH ×2 (10:13→13:15)
[2022-05-28] MEDS ORDERED: Digoxin 0.125 MG TAB PO SCH (13:00)
[2022-05-28 13:44] LABS: Anion Gap 13 mmol/L (10-20); BUN (Urea Nitrogen) 42 mg/dL (8.4-25.7); Calc. Creatinine Clearance 50 mL/min (70-130); Calcium 8.9 mg/dL (7.8-10.44); Carbon Dioxide 28 mmol/L (23-31); Chloride 102 mmol/L (98-107); Estimated GFR 32; Glucose 137 mg/dL (83-110); Potassium 3.6 mmol/L (3.5-5.1); Sodium 139 mmol/L (136-145)
[2022-05-28] MEDS: Atorvastatin Calcium 40 MG TAB PO SCH (21:28)
[2022-05-29] MEDS: Furosemide 40 MG/4 ML VIAL SLOW IVP SCH ×2 (05:23→14:09)
[2022-05-29 05:53] LABS: Anion Gap 12 mmol/L (10-20); BUN (Urea Nitrogen) 39 mg/dL (8.4-25.7); Calc. Creatinine Clearance 52 mL/min (70-130); Calcium 8.9 mg/dL (7.8-10.44); Carbon Dioxide 29 mmol/L (23-31); Chloride 102 mmol/L (98-107); Estimated GFR 34; Glucose 106 mg/dL (83-110); Potassium 3.7 mmol/L (3.5-5.1); Sodium 139 mmol/L (136-145)
[2022-05-29] MEDS: hydrALAZINE 25 MG TAB PO SCH ×3 (08:32→21:24)
[2022-05-29] MEDS: Aspirin 325 MG TAB PO SCH (08:32)
[2022-05-29] MEDS: Famotidine 20 MG TAB PO SCH (08:32)
[2022-05-29] MEDS: Amiodarone 200 MG TAB PO SCH ×2 (08:33→21:25)
[2022-05-29] MEDS: Digoxin 0.125 MG TAB PO SCH (08:33)
[2022-05-29] MEDS: Empagliflozin 10 MG TAB PO SCH (08:33)
[2022-05-29] MEDS: Spironolactone 25 MG TAB PO SCH (08:33)
[2022-05-29] MEDS: Carvedilol 25 MG TAB PO SCH ×2 (08:34→17:14)
[2022-05-29] MEDS: Allopurinol 300 MG TAB PO SCH (08:34)
[2022-05-29] MEDS: Isosorbide Dinitrate 20 MG TAB PO SCH ×3 (08:36→21:25)
[2022-05-29] MEDS: Atorvastatin Calcium 40 MG TAB PO SCH (21:24)
[2022-05-30 04:47] LABS: Anion Gap 14 mmol/L (10-20); BUN (Urea Nitrogen) 34 mg/dL (8.4-25.7); Calc. Creatinine Clearance 54 mL/min (70-130); Calcium 8.5 mg/dL (7.8-10.44); Carbon Dioxide 25 mmol/L (23-31); Chloride 103 mmol/L (98-107); Estimated GFR 36; Glucose 100 mg/dL (83-110); Potassium 3.7 mmol/L (3.5-5.1); Sodium 138 mmol/L (136-145)
[2022-05-30] MEDS: Furosemide 40 MG/4 ML VIAL SLOW IVP SCH ×2 (06:39→14:02)
[2022-05-30] MEDS ORDERED: hydrALAZINE 25 MG TAB PO SCH (09:45)
[2022-05-30] MEDS ORDERED: Isosorbide Dinitrate 5 MG TAB PO SCH (09:45)
[2022-05-30] MEDS: Carvedilol 25 MG TAB PO SCH ×2 (10:03→17:55)
[2022-05-30] MEDS: Famotidine 20 MG TAB PO SCH (10:03)
[2022-05-30] MEDS: Amiodarone 200 MG TAB PO SCH ×2 (10:03→21:45)
[2022-05-30] MEDS: Empagliflozin 10 MG TAB PO SCH (10:03)
[2022-05-30] MEDS: Aspirin 325 MG TAB PO SCH (10:03)
[2022-05-30] MEDS: Allopurinol 300 MG TAB PO SCH (10:05)
[2022-05-30] MEDS: Spironolactone 25 MG TAB PO SCH (10:05)
[2022-05-30] MEDS: hydrALAZINE 25 MG TAB PO SCH ×3 (10:29→21:44)
[2022-05-30] MEDS: Isosorbide Dinitrate 20 MG TAB PO SCH (10:29)
[2022-05-30] MEDS: Digoxin 0.125 MG TAB PO SCH (10:29)
[2022-05-30 15:29] LABS: Bilirubin Negative (Negative); Blood, Urine Negative (Negative); Clarity Clear (Clear); Glucose, Urine (Dipstick) 500 mg/dL (Negative); Ketone, Urine Negative (Negative); Leukocyte Negative Leu/uL (Negative); Nitrite Negative (Negative); Protein, Urine (Dipstick) Negative (Neg-Trace); Specific Gravity, Urine 1.013 (1.002-1.036); Squamous Epithelial 0-3 HPF (0-3); WBC/HPF 0-3 HPF (0-3); pH, Urine 6.5 (5.0-9.0)
[2022-05-30 15:30] LABS: Bacteria/HPF Rare-Few HPF (None Seen)
[2022-05-30 16:16] LABS: Creatinine, Urine 90.18 mg/dL (63-166)
[2022-05-30] MEDS: Isosorbide Dinitrate 5 MG TAB PO SCH ×2 (17:56→21:45)
[2022-05-30] MEDS: Atorvastatin Calcium 40 MG TAB PO SCH (21:45)
[2022-05-31] MEDS: Acetaminophen 325 MG TAB PO PRN (03:29)
[2022-05-31 08:55] LABS: #Basophils 0.1 thou/uL (0.0-0.2); #Eosinphils 0.2 thou/uL (0.0-0.7); #Lymphocytes 1.9 thou/uL (1.20-3.40); #Monocytes 0.7 thou/uL (0.11-0.59); #Neutrophils 3.2 thou/uL (1.40-6.50); %Basophils 1.4 % (0.0-1.0); %Eosinophils 2.5 % (0.0-10.0); %Lymphocytes 31.5 % (21.0-51.0); %Monocytes 11.7 % (0.0-10.0); %Neutrophils 52.9 % (42.0-75.0); Hemoglobin 12.5 g/dL (14.0-18.0); Mean Corpuscular HGB CONC 31.1 g/dL (32.0-36.0); Mean Corpuscular Hemoglobin 23.9 pg (27.0-31.0); Mean Corpuscular Volume 76.7 fl (78.0-98.0); Mean Platelet Volume 9.5 fL (7.4-10.4); Platelet Count 210 10x3/uL (130-400); RBC Distribution Width 17.2 % (11.5-14.5); Red Blood Cell (RBC) Count 5.24 mill/uL (4.70-6.10); White Blood Cell (WBC) Count 6.1 10x3/uL (4.8-10.8)
[2022-05-31] MEDS: hydrALAZINE 25 MG TAB PO SCH ×3 (08:59→20:29)
[2022-05-31] MEDS: Empagliflozin 10 MG TAB PO SCH (08:59)
[2022-05-31] MEDS: Aspirin 325 MG TAB PO SCH (08:59)
[2022-05-31] MEDS: Amiodarone 200 MG TAB PO SCH ×2 (08:59→20:29)
[2022-05-31] MEDS: Famotidine 20 MG TAB PO SCH (09:00)
[2022-05-31] MEDS: Isosorbide Dinitrate 5 MG TAB PO SCH ×3 (09:00→20:29)
[2022-05-31] MEDS: Spironolactone 25 MG TAB PO SCH (09:00)
[2022-05-31] MEDS: Allopurinol 300 MG TAB PO SCH (09:00)
[2022-05-31] MEDS: Carvedilol 25 MG TAB PO SCH ×2 (09:00→16:00)
[2022-05-31 09:23] LABS: Albumin 3.3 g/dL (3.4-4.8); Anion Gap 15 mmol/L (10-20); BUN (Urea Nitrogen) 31 mg/dL (8.4-25.7); BUN/Creatinine Ratio 16.58; Calc. Creatinine Clearance 55 mL/min (70-130); Calcium 8.9 mg/dL (7.8-10.44); Carbon Dioxide 27 mmol/L (23-31); Chloride 104 mmol/L (98-107); Estimated GFR 38; Glucose 93 mg/dL (83-110); Iron 31 ug/dL (65-175); Iron Binding Capacity, Total 216 mcg/dL (261-462); Phosphorus 3.8 mg/dL (2.3-4.7); Potassium 3.7 mmol/L (3.5-5.1); Sodium 142 mmol/L (136-145)
[2022-05-31] MEDS ORDERED: Spironolactone 25 MG TAB PO SCH (11:00)
[2022-05-31] MEDS: Furosemide 40 MG TAB PO SCH (16:00)
[2022-05-31] MEDS: Atorvastatin Calcium 40 MG TAB PO SCH (20:31)
[2022-06-01 05:30] LABS: Albumin 3.2 g/dL (3.4-4.8); Anion Gap 12 mmol/L (10-20); BUN (Urea Nitrogen) 25 mg/dL (8.4-25.7); BUN/Creatinine Ratio 14.62; Calc. Creatinine Clearance 60 mL/min (70-130); Calcium 8.8 mg/dL (7.8-10.44); Carbon Dioxide 27 mmol/L (23-31); Chloride 105 mmol/L (98-107); Estimated GFR 42; Glucose 96 mg/dL (83-110); Phosphorus 3.6 mg/dL (2.3-4.7); Potassium 3.4 mmol/L (3.5-5.1); Sodium 141 mmol/L (136-145)
[2022-06-01] MEDS: Aspirin 325 MG TAB PO SCH (07:52)
[2022-06-01] MEDS: Amiodarone 200 MG TAB PO SCH (07:53)
[2022-06-01] MEDS: Isosorbide Dinitrate 5 MG TAB PO SCH ×2 (07:53→15:19)
[2022-06-01] MEDS: Carvedilol 25 MG TAB PO SCH ×2 (07:54→16:14)
[2022-06-01] MEDS: Empagliflozin 10 MG TAB PO SCH (07:54)
[2022-06-01] MEDS: hydrALAZINE 25 MG TAB PO SCH (07:54)
[2022-06-01] MEDS: Famotidine 20 MG TAB PO SCH (07:55)
[2022-06-01] MEDS: Allopurinol 300 MG TAB PO SCH (07:55)
[2022-06-01] MEDS ORDERED: Spironolactone 100 MG TAB PO SCH (08:00)
[2022-06-01] MEDS ORDERED: Potassium Chloride 20 MEQ TAB PO SCH (08:00)
[2022-06-01] MEDS ORDERED: Spironolactone 25 MG TAB PO SCH (08:00)
[2022-06-01] MEDS ORDERED: traMADol HCl 50 MG TAB PO PRN (08:27)
[2022-06-01] MEDS: Furosemide 40 MG TAB PO SCH ×2 (10:06→16:14)
[2022-06-01 11:24] LABS: Magnesium 2.1 mg/dL (1.6-2.6)
[2022-06-01] MEDS ORDERED: hydrALAZINE 25 MG TAB PO SCH (15:00)
[2022-06-01 15:19] VITALS: BP 153/74
[2022-06-01 16:18] VITALS: TEMP 97.6
[2022-06-01] MEDS ORDERED: Amiodarone 200 MG TAB PO SCH (21:00)
== END 2022-06-01 16:54 | disposition home or self-care (01) | DRG 280 ==
LOC: ERS 22:11 → ERHOLD 23:46 → IMCU/EMU 23:51 → 2NO 05-27 14:06
PROVIDERS: ADMIT Family Medicine; ATTEND Family Medicine
PROC: 5A09357 Assistance with Respiratory Ventilation, Less than 24 Consecutive Hours, Continuous Positive Airway Pressure (ICD-10-PCS; principal; 2022-05-26)
DX: I13.0 Hypertensive heart and chronic kidney disease with heart failure and stage 1 through stage 4 chronic kidney disease, or unspecified chronic kidney disease (principal); I21.A1 Myocardial infarction type 2; I50.43 Acute on chronic combined systolic (congestive) and diastolic (congestive) heart failure; J96.01 Acute respiratory failure with hypoxia; I48.92 Unspecified atrial flutter; N17.9 Acute kidney failure, unspecified; I16.1 Hypertensive emergency; E87.20 Acidosis, unspecified; I48.19 Other persistent atrial fibrillation; N18.30 Chronic kidney disease, stage 3 unspecified; E11.22 Type 2 diabetes mellitus with diabetic chronic kidney disease; E87.6 Hypokalemia; D49.511 Neoplasm of unspecified behavior of right kidney; R77.8 Other specified abnormalities of plasma proteins; I25.5 Ischemic cardiomyopathy; K76.1 Chronic passive congestion of liver; Z88.0 Allergy status to penicillin; Z79.899 Other long term (current) drug therapy; Z79.82 Long term (current) use of aspirin; Z98.890 Other specified postprocedural states; Z95.1 Presence of aortocoronary bypass graft
CPT/HCPCS: 36415; 36416; 36600; 51702; 71045; 71250; 74177; 74181; 76770; 78306; 80048; 80053; 80069; 81001; 82553; 82570; 82728; 82805; 83540; 83550; 83605; 83735; 83880; 84100; 84156; 84300; 84484; 84540; 85025; 87040; 93005; 93798; 93975; 94660; 96365; 96375; A9503; G0103; J1160; J1650; J1815; J1940; J1956; J3370-JW; J3475

== ENCOUNTER 2023-03-22 13:23 | Inpatient (IN) | payer MEDICARE ==
[2023-03-22 14:21] LABS: #Basophils 0.1 thou/uL (0.0-0.2); #Neutrophils 6.3 thou/uL (1.40-6.50); %Basophils 0.6 % (0.0-1.0); %Eosinophils 0.3 % (0.0-10.0); %Lymphocytes 14.5 % (21.0-51.0); %Monocytes 11.8 % (0.0-10.0); %Neutrophils 72.5 % (42.0-75.0); Hematocrit 37.5 % (42.0-52.0); Hemoglobin 11.5 g/dL (14.0-18.0); Mean Corpuscular HGB CONC 30.7 g/dL (32.0-36.0); Mean Corpuscular Volume 71.8 fl (78.0-98.0); Mean Platelet Volume 10.5 fL (7.4-10.4); Platelet Count 289 10x3/uL (130-400); RBC Distribution Width 19.1 % (11.5-14.5); Red Blood Cell (RBC) Count 5.22 mill/uL (4.70-6.10); White Blood Cell (WBC) Count 8.7 10x3/uL (4.8-10.8)
[2023-03-22 14:46] LABS: ALT (SGPT) 26 U/L (8-55); AST (SGOT) 20 U/L (5-34); Albumin 3.8 g/dL (3.4-4.8); Alkaline Phosphatase 74 U/L (40-110); Anion Gap 16 mmol/L (10-20); BUN (Urea Nitrogen) 30 mg/dL (8.4-25.7); Bilirubin, Total 1.1 mg/dL (0.2-1.2); Calc. Creatinine Clearance 0 mL/min (70-130); Calcium 8.7 mg/dL (7.8-10.44); Carbon Dioxide 22 mmol/L (23-31); Chloride 107 mmol/L (98-107); Estimated GFR 36; Globulin 3.4 g/dL (2.4-3.5); Glucose 132 mg/dL (83-110); Potassium 3.6 mmol/L (3.5-5.1); Protein, Total 7.2 g/dL (5.8-8.1); Sodium 141 mmol/L (136-145)
[2023-03-22 14:49] LABS: Troponin I 0.034 ng/mL (< 0.028)
[2023-03-22 14:50] LABS: Anisocytosis SLIGHT = 6-15 cells (100X) (0-5/hpf); Elliptocytes SLIGHT = 2-5 cells (100X) (0-1/hpf); Hypochromia SLIGHT = 6-15 cells (100X) (0-5/hpf); Microcytosis SLIGHT = 6-15 cells (100X) (0-5/hpf); Platelet Adequacy Comment Platelets Normal; Polychromasia SLIGHT = 2-3 cells (100X) (0-2/hpf); Target Cells SLIGHT = 2-5 cells (100X) (0-1/hpf)
[2023-03-22] MEDS ORDERED: Potassium Chloride 20 MEQ TAB ONE (15:24)
[2023-03-22] MEDS ORDERED: Aspirin Chewable 81 MG TAB ONE (15:25)
[2023-03-22] MEDS ORDERED: Furosemide 40 MG (4 mL) VIAL ONE (15:25)
[2023-03-22] MEDS ORDERED: Nitroglycerin 2% Ointment 1 INCH/1 GM Packet ONE (15:25)
[2023-03-22] MEDS ORDERED: Senokot S 8.6-50 MG TAB PO PRN (16:52)
[2023-03-22] MEDS ORDERED: Calcium Carbonate 500 MG ChewTAB PO PRN (16:52)
[2023-03-22] MEDS ORDERED: Acetaminophen 325 MG TAB PO PRN (16:52)
[2023-03-22] MEDS ORDERED: Guaifenesin DM 100-10/5 ML UDCUP PO PRN (16:52)
[2023-03-22] MEDS ORDERED: Nitroglycerin 0.4 MG TAB 1 EACH ONE (17:19)
[2023-03-22] MEDS ORDERED: Nitroglycerin 0.4 MG TAB (25 Tab Bottle) ONE (17:21)
[2023-03-22 18:27] LABS: Troponin I 0.017 ng/mL (< 0.028)
[2023-03-22] MEDS ORDERED: Carvedilol 6.25 MG TAB ONE (18:30)
[2023-03-22] MEDS ORDERED: hydrALAZINE 25 MG TAB ONE (18:30)
[2023-03-22] MEDS ORDERED: Isosorbide Dinitrate 20 MG TAB PO SCH (18:45)
[2023-03-22] MEDS ORDERED: Carvedilol 6.25 MG TAB PO SCH (21:00)
[2023-03-22] MEDS ORDERED: Amiodarone 200 MG TAB PO SCH (21:00)
[2023-03-22 21:46] LABS: Troponin I 0.027 ng/mL (< 0.028)
[2023-03-22 22:37] VITALS: BMI 39.6
[2023-03-22] MEDS: hydrALAZINE 25 MG TAB PO SCH (22:38)
[2023-03-22] MEDS: Isosorbide Dinitrate 20 MG TAB PO SCH (22:39)
[2023-03-22] MEDS: Atorvastatin Calcium 40 MG TAB PO SCH (22:39)
[2023-03-23] MEDS: Furosemide 40 MG (4 mL) VIAL SLOW IVP SCH ×2 (05:28→16:11)
[2023-03-23 06:05] LABS: Bacteria/HPF None Seen HPF (None Seen); Bilirubin Negative (Negative); Blood, Urine Negative (Negative); Clarity Clear (Clear); Glucose, Urine (Dipstick) 300 mg/dL (Negative); Ketone, Urine Negative (Negative); Leukocyte 25 Leu/uL (Negative); Nitrite Negative (Negative); Protein, Urine (Dipstick) 10 mg/dL (Neg-Trace); RBC/HPF 0-3 HPF (0-3); Squamous Epithelial 0-3 HPF (0-3); Urobilinogen Normal mg/dL (Less than 2); pH, Urine 5.5 (5.0-9.0)
[2023-03-23 07:08] LABS: #Eosinphils 0.1 thou/uL (0.0-0.7); #Monocytes 0.9 thou/uL (0.11-0.59); #Neutrophils 5.9 thou/uL (1.40-6.50); %Basophils 0.4 % (0.0-1.0); %Lymphocytes 15.7 % (21.0-51.0); %Monocytes 11.3 % (0.0-10.0); %Neutrophils 71.4 % (42.0-75.0); Hematocrit 33.1 % (42.0-52.0); Hemoglobin 10.3 g/dL (14.0-18.0); Mean Corpuscular HGB CONC 31.1 g/dL (32.0-36.0); Mean Corpuscular Hemoglobin 22.4 pg (27.0-31.0); Mean Platelet Volume 10.8 fL (7.4-10.4); Platelet Count 264 10x3/uL (130-400); RBC Distribution Width 18.7 % (11.5-14.5); White Blood Cell (WBC) Count 8.3 10x3/uL (4.8-10.8)
[2023-03-23 07:29] LABS: Albumin 3.6 g/dL (3.4-4.8); Anion Gap 13 mmol/L (10-20); BUN (Urea Nitrogen) 26 mg/dL (8.4-25.7); BUN/Creatinine Ratio 15.29; Calc. Creatinine Clearance 62 mL/min (70-130); Calcium 8.7 mg/dL (7.8-10.44); Carbon Dioxide 25 mmol/L (23-31); Chloride 106 mmol/L (98-107); Estimated GFR 42; Glucose 96 mg/dL (83-110); Magnesium 1.8 mg/dL (1.6-2.6); Phosphorus 3.6 mg/dL (2.3-4.7); Potassium 3.2 mmol/L (3.5-5.1); Sodium 141 mmol/L (136-145)
[2023-03-23] MEDS ORDERED: Potassium Chloride 20 MEQ TAB PO SCH ×2 (07:45→17:00)
[2023-03-23] MEDS ORDERED: Magnesium 2 GM/50 ML(in water) 2 GM in Premix 1 BAG IVPB SCH (07:45)
[2023-03-23 07:52] LABS: Ferritin 559.19 ng/mL (22-322); Thyroid Stimulating Hormone 1.4312 uIU/mL (0.35-4.94)
[2023-03-23 08:43] LABS: Iron 37 ug/dL (65-175); Iron Binding Capacity, Total 206 mcg/dL (261-462)
[2023-03-23] MEDS: hydrALAZINE 25 MG TAB PO SCH ×3 (08:51→20:35)
[2023-03-23] MEDS: Carvedilol 25 MG TAB PO SCH ×2 (08:52→20:35)
[2023-03-23] MEDS: Isosorbide Dinitrate 20 MG TAB PO SCH ×3 (08:52→20:35)
[2023-03-23] MEDS: Aspirin 325 MG TAB PO SCH (08:52)
[2023-03-23] MEDS: Amiodarone 200 MG TAB PO SCH (08:52)
[2023-03-23] MEDS ORDERED: Enoxaparin 30 MG (0.3 mL) SYRINGE SC SCH (09:00)
[2023-03-23] MEDS ORDERED: Spironolactone 100 MG TAB PO SCH (09:45)
[2023-03-23] MEDS: Atorvastatin Calcium 40 MG TAB PO SCH (20:35)
[2023-03-23] MEDS: Senokot S 8.6-50 MG TAB PO SCH (20:35)
[2023-03-24 05:00] LABS: #Eosinphils 0.2 thou/uL (0.0-0.7); #Neutrophils 5.3 thou/uL (1.40-6.50); %Basophils 0.2 % (0.0-1.0); %Eosinophils 2.5 % (0.0-10.0); %Lymphocytes 18.5 % (21.0-51.0); %Monocytes 12.3 % (0.0-10.0); %Neutrophils 66.3 % (42.0-75.0); Hematocrit 30.7 % (42.0-52.0); Hemoglobin 9.7 g/dL (14.0-18.0); Mean Corpuscular HGB CONC 31.6 g/dL (32.0-36.0); Mean Corpuscular Hemoglobin 22.5 pg (27.0-31.0); Mean Corpuscular Volume 71.2 fl (78.0-98.0); Mean Platelet Volume 10.3 fL (7.4-10.4); Platelet Count 230 10x3/uL (130-400); RBC Distribution Width 18.4 % (11.5-14.5); Red Blood Cell (RBC) Count 4.31 mill/uL (4.70-6.10); White Blood Cell (WBC) Count 8.1 10x3/uL (4.8-10.8)
[2023-03-24 05:26] LABS: Anion Gap 11 mmol/L (10-20); BUN (Urea Nitrogen) 29 mg/dL (8.4-25.7); Calc. Creatinine Clearance 57 mL/min (70-130); Calcium 8.4 mg/dL (7.8-10.44); Carbon Dioxide 26 mmol/L (23-31); Chloride 106 mmol/L (98-107); Estimated GFR 39; Glucose 108 mg/dL (83-110); Potassium 3.2 mmol/L (3.5-5.1); Sodium 140 mmol/L (136-145)
[2023-03-24] MEDS: Furosemide 40 MG (4 mL) VIAL SLOW IVP SCH (05:40)
[2023-03-24 06:53] LABS: Hypochromia SLIGHT = 6-15 cells (100X) (0-5/hpf); Microcytosis SLIGHT = 6-15 cells (100X) (0-5/hpf); Platelet Adequacy Comment Appears Adequate
[2023-03-24 07:57] VITALS: TEMP 98
[2023-03-24] MEDS ORDERED: Potassium Chloride 20 MEQ TAB PO SCH (08:00)
[2023-03-24] MEDS ORDERED: Spironolactone 100 MG TAB PO SCH (08:00)
[2023-03-24] MEDS: Carvedilol 25 MG TAB PO SCH (08:42)
[2023-03-24] MEDS: Aspirin 325 MG TAB PO SCH (08:42)
[2023-03-24] MEDS: Amiodarone 200 MG TAB PO SCH (08:42)
[2023-03-24] MEDS: Isosorbide Dinitrate 20 MG TAB PO SCH (08:43)
[2023-03-24] MEDS: hydrALAZINE 25 MG TAB PO SCH (08:43)
[2023-03-24] MEDS: Senokot S 8.6-50 MG TAB PO SCH (08:43)
[2023-03-24] MEDS ORDERED: Carvedilol 25 MG TAB PO SCH ×2 (09:00→10:45)
[2023-03-24] MEDS ORDERED: Enoxaparin 40 MG (0.4 mL) SYRINGE SC SCH (09:00)
[2023-03-24] MEDS ORDERED: Empagliflozin 10 MG TAB PO SCH (09:00)
[2023-03-24 10:57] VITALS: BP 193/94
[2023-03-24] MEDS ORDERED: Iron, Sodium Ferric Gluconate 250 MG in Sodium Chloride 0.9% 250 ML 250 ML IVPB SCH (12:00)
[2023-03-24] MEDS ORDERED: EPOETIN ALFA-EPBX (ESRD) 10,000 UNITS/ML VIAL SC SCH (12:00)
[2023-03-25] MEDS ORDERED: Furosemide 40 MG (4 mL) VIAL SLOW IVP SCH (09:00)
[2023-03-25] MEDS ORDERED: FLU VACC QS2023(65UP)/MF59C/PF 60 MCG/0.5 ML SYRINGE IM ONE (09:00)
== END 2023-03-24 11:35 | disposition home or self-care (01) | DRG 291 ==
LOC: ERS 13:23 → 2SW 16:33 → OBSVTOIN 16:33
PROVIDERS: ADMIT Internal Medicine; ATTEND Internal Medicine
DX: I13.0 Hypertensive heart and chronic kidney disease with heart failure and stage 1 through stage 4 chronic kidney disease, or unspecified chronic kidney disease (principal); I50.23 Acute on chronic systolic (congestive) heart failure; N17.9 Acute kidney failure, unspecified; I25.10 Atherosclerotic heart disease of native coronary artery without angina pectoris; E78.5 Hyperlipidemia, unspecified; N18.30 Chronic kidney disease, stage 3 unspecified; Z88.0 Allergy status to penicillin; Z79.82 Long term (current) use of aspirin; Z79.899 Other long term (current) drug therapy; Z79.84 Long term (current) use of oral hypoglycemic drugs; Z82.49 Family history of ischemic heart disease and other diseases of the circulatory system; E87.6 Hypokalemia; E11.22 Type 2 diabetes mellitus with diabetic chronic kidney disease; Z98.890 Other specified postprocedural states; Z87.891 Personal history of nicotine dependence; I48.0 Paroxysmal atrial fibrillation; E83.42 Hypomagnesemia; E66.9 Obesity, unspecified; Z68.39 Body mass index [BMI] 39.0-39.9, adult; D63.1 Anemia in chronic kidney disease
CPT/HCPCS: 36415; 71045; 76775; 80048; 80053; 80069; 81001; 82728; 83540; 83550; 83735; 83880; 84443; 84484; 85025; 93005; 93798; 96374; J1650; J1940; J3475